=== PATIENT | female | born 1955 ===

== ENCOUNTER 2016-12-20 09:37 | Emergency (ER) | payer BC ==
[2016-12-20] MEDS ORDERED: DiphenhydrAMINE 50 mg/ml Inj IM STA (10:22)
[2016-12-20] MEDS ORDERED: DiphenhydrAMINE 50 mg/ml Inj ONE (10:31)
--- NOTE | 2016-12-20 10:39 | C.PDOC ---
History Of Present Illness 61 y/o female with several years Hx of intermittent rash, presents to ED with complaints of rash in abdomen and both upper arms developing x1 week ago. Patient reports pain and redness when exposed to head or upset. Patient states consulting [facility] a year ago but is unclear of the diagnosis. No medications have been taken. Patient denies itchiness, fever, chills or any other complaints at this time. Time Seen by Provider: 12/20/16 10:09 Chief Complaint (Nursing): Abnormal Skin Integrity History/Exam Limitations: no limitations Onset/Duration Of Symptoms: Days Location Of Injury: Right: Arm, Left: Arm, Anterior: Abdomen Quality Of Symptoms: Painful Past Medical History Vital Signs: Last Vital Signs Temp 98.4 F 12/20/16 11:56 Pulse 82 12/20/16 11:56 Resp 18 12/20/16 11:56 BP 188/81 H 12/20/16 11:56 Pulse Ox 94 L 12/20/16 12:13 - Medical History PMH: Asthma, Diverticulitis, HTN Surgical History: Cholecystectomy Family History: States: No Known Family Hx - Social History Hx Alcohol Use: No Hx Substance Use: No Review Of Systems Constitutional: Negative for: Fever, Chills Skin: Positive for: Rash Neurological: Negative for: Weakness, Headache, Dizziness Physical Exam - Physical Exam Appears: Non-toxic, No Acute Distress Skin: Normal Color, Warm Head: Atraumatic, Normacephalic Eye(s): bilateral: Normal Inspection Cardiovascular: Rhythm Regular Respiratory: No Rales, No Rhonchi, No Wheezing Gastrointestinal/Abdominal: Soft, No Tenderness, No Guarding, No Rebound Extremity: Other (Large area of Uticaria on both arms) Neurological/Psych: Oriented x3, Normal Speech, Normal Cognition, Normal Motor, Normal Sensation ED Course And Treatment O2 Sat by Pulse Oximetry: 94 (Room air ) Pulse Ox Interpretation: Normal Disposition - Disposition Disposition: HOME/ ROUTINE Disposition Time: 11:30 Condition: GOOD Prescriptions: Famotidine [Pepcid] 1 tab PO BID #10 tab Loratadine [Wal-Itin] 10 mg PO DAILY #15 tab.rapdis Loratadine [Claritin] 1 tab PO DAILY #20 tab Prednisone 1 tab PO DAILY #4 tablet Instructions: Urticaria (ED) - Clinical Impression Clinical Impression: Urticaria - PA / CLINIC SUPERVISOR / Resident Statement / has reviewed & agrees with the documentation as recorded. MD/DO has examined the patient and agrees with the treatment plan. - Scribe Statement The provider has reviewed the documentation as recorded by the Scribe Provider Attestation: Joe Kim All medical record entries made by the Scribe were at my direction and personally dictated by me. I have reviewed the chart and agree that the record accurately reflects my personal performance of the history, physical exam, medical decision making, and the department course for this patient. I have also personally directed, reviewed, and agree with the discharge instructions and disposition.
[2016-12-20 11:56] VITALS: BP 188/81; PULSE 82; RESP 18; TEMP 98.4
[2016-12-20 12:05] VITALS: O2SAT 94
== END 2016-12-20 11:55 | disposition home or self-care (01) ==
LOC: C.ER 09:37
DX: L50.9 Urticaria, unspecified (principal)
CPT/HCPCS: 96372; 99284; J1200

== ENCOUNTER 2017-09-04 10:36 | Emergency (ER) | payer BC ==
[2017-09-04 10:44] VITALS: BP 175/99; PULSE 87; RESP 16; TEMP 98.5; O2SAT 96
[2017-09-04] MEDS ORDERED: guaiFENesin 100 mg/5 ml Syrup UD PO STA (11:42)
--- NOTE | 2017-09-04 11:43 | C.PDOC ---
History Of Present Illness 22 y/o female presents to the ER complaining of cough, nasal congestion, and body aches which have been present for 1 day. Patient reports she did not take any medications. Patient states that she has many sick contacts at home with the flu. Patient denies having fever, chills,nausea,vomiting, and diarrhea. Time Seen by Provider: 09/04/17 11:38 Chief Complaint (Nursing): Flu-like Symptoms History Per: Patient History/Exam Limitations: no limitations Onset/Duration Of Symptoms: Days Current Symptoms Are (Timing): Still Present Associated Symptoms: Cough, Nasal Congestion. denies: Nausea, Vomiting, Diarrhea Severity: Moderate Past Medical History Reviewed: Historical Data, Nursing Documentation, Vital Signs Vital Signs: Last Vital Signs Temp 98.5 F 09/04/17 10:41 Pulse 87 09/04/17 10:41 Resp 16 09/04/17 10:41 BP 175/99 H 09/04/17 10:41 Pulse Ox 96 09/04/17 11:43 - Medical History PMH: Asthma, Diverticulitis, HTN Surgical History: Cholecystectomy Family History: States: No Known Family Hx - Social History Hx Alcohol Use: No Hx Substance Use: No - Immunization History Hx Tetanus Toxoid Vaccination: No Hx Influenza Vaccination: No Hx Pneumococcal Vaccination: No Review Of Systems Except As Marked, All Systems Reviewed And Found Negative. Constitutional: Positive for: Malaise. Negative for: Fever, Chills ENT: Positive for: Nose Congestion Respiratory: Positive for: Cough Gastrointestinal: Negative for: Nausea, Vomiting, Diarrhea Physical Exam - Physical Exam Appears: Non-toxic, No Acute Distress, Other (obese, female) Skin: Normal Color, Warm Head: Atraumatic, Normacephalic Eye(s): bilateral: Normal Inspection Ear(s): Bilateral: Normal Nose: Normal Oral Mucosa: Moist Throat: Normal, No Erythema, No Exudate Neck: Supple Chest: Symmetrical Cardiovascular: Rhythm Regular Respiratory: Normal Breath Sounds, No Accessory Muscle Use, No Rales, No Rhonchi , No Wheezing Extremity: Normal ROM Neurological/Psych: Oriented x3, Normal Speech, Normal Motor, Normal Sensation ED Course And Treatment O2 Sat by Pulse Oximetry: 96 (RA) Pulse Ox Interpretation: Normal Progress Note: Patient given Tamiflu, Robitussin, and Motrin. Medical Decision Making Medical Decision Making: empiric tx for influenza s/s x 1 day, many sick contacts @ home w same. Disposition Doctor Will See Patient In The: Office Counseled Patient/Family Regarding: Studies Performed, Diagnosis - Disposition Referrals: Mary Navarrete MD [Staff Provider] - Disposition: HOME/ ROUTINE Disposition Time: 11:43 Condition: GOOD Additional Instructions: kris Tamiflu 75 mg dos veces al jose para cumplir 5 wing Dayquil/Nyquil para chelsi sintomas kris muchos liquidos Sigue con Dr. Navarrete saul necessario. Prescriptions: Oseltamivir [Tamiflu] 75 mg PO BID #9 cap Instructions: Influenza (ED) Forms: [employer] (Telugu), Work Excuse Print Language: FRISIAN - Clinical Impression Clinical Impression: Influenza-like illness - Scribe Statement The provider has reviewed the documentation as recorded by the Scribe Jordana Samayoa Provider Attestation: All medical record entries made by the Scribe were at my direction and personally dictated by me. I have reviewed the chart and agree that the record accurately reflects my personal performance of the history, physical exam, medical decision making, and the department course for this patient. I have also personally directed, reviewed, and agree with the discharge instructions and disposition.
[2017-09-04] MEDS ORDERED: guaiFENesin DM 100 mg-10 mg/5 ml UD ONE (11:50)
== END 2017-09-04 11:55 | disposition home or self-care (01) ==
LOC: C.ER 10:36
DX: J11.1 Influenza due to unidentified influenza virus with other respiratory manifestations (principal)

== ENCOUNTER 2018-02-11 00:29 | Inpatient (IN) | payer BC ==
[2018-02-11] MEDS ORDERED: Aspirin 325 mg EC Tablets PO STA (00:53)
--- NOTE | 2018-02-11 00:53 | C.PDOC ---
History Of Present Illness Patient presents to the ER with a complaint of mid sternal chest pain and SOB after she got out of the shower. Patient is currently speaking in 4-5 word sentences. Denies fever, chills, nausea, or vomiting. Time Seen by Provider: 02/11/18 00:52 Chief Complaint (Nursing): Chest Pain History Per: Patient History/Exam Limitations: no limitations Onset/Duration Of Symptoms: Hrs Current Symptoms Are (Timing): Still Present Severity: Moderate Pain Scale Rating Of: 4 Associated Symptoms: Dyspnea. denies: Nausea, Diaphoresis, Syncope, Other ( Fever, chills, nausea, or vomiting.) Modifying Factors: None Exacerbating Factors: None Alleviating Factors: None Recent travel outside of the [place]: No Additional History Per: Family Past Medical History Reviewed: Historical Data, Nursing Documentation, Vital Signs Vital Signs: Last Vital Signs Temp 98.3 F 02/11/18 00:38 Pulse 90 02/11/18 03:11 Resp 22 02/11/18 03:11 BP 156/85 H 02/11/18 03:11 Pulse Ox 98 02/11/18 03:11 - Medical History PMH: Asthma, Diverticulitis, HTN Surgical History: Cholecystectomy Family History: States: No Known Family Hx - Social History Hx Alcohol Use: No Hx Substance Use: No - Immunization History Hx Tetanus Toxoid Vaccination: No Hx Influenza Vaccination: Yes Hx Pneumococcal Vaccination: Yes Review Of Systems Constitutional: Negative for: Fever, Chills Eyes: Negative for: Vision Change ENT: Negative for: Throat Pain Cardiovascular: Positive for: Chest Pain Respiratory: Positive for: Shortness of Breath Gastrointestinal: Negative for: Nausea, Vomiting Genitourinary: Negative for: Dysuria Musculoskeletal: Negative for: Back Pain Skin: Negative for: Rash Neurological: Negative for: Weakness, Numbness Psych: Negative for: Anxiety Physical Exam - Physical Exam Appears: Non-toxic, Other (moderate distress) Skin: Warm, Dry Head: Normacephalic Eye(s): bilateral: Normal Inspection Oral Mucosa: Moist Neck: Supple Chest: Symmetrical, No Tenderness Cardiovascular: Rhythm Regular Respiratory: Decreased Breath Sounds, No Rales, No Rhonchi, Wheezing Gastrointestinal/Abdominal: Soft, No Tenderness, No Distention, No Guarding Back: Normal Inspection Extremity: Normal ROM Extremity: Bilateral: Atraumatic Pulses: Left Dorsalis Pedis: Normal, Right Dorsalis Pedis: Normal Neurological/Psych: Oriented x3 Gait: Steady ED Course And Treatment - Laboratory Results Result Diagrams: 02/11/18 01:08 02/11/18 01:08 ECG: Interpreted By Me, Viewed By Me ECG Rhythm: Sinus Rhythm (100), Nonspecific Changes (lvh with repol abn) O2 Sat by Pulse Oximetry: 97 (Room air) Pulse Ox Interpretation: Normal - Radiology CXR: Interpreted by Me, Viewed By Me CXR Interpretation: No: Infiltrates, Fracture, Pnemothorax Progress Note: EKG, blood work, and CXR ordered. Aspirin and lovenox administered. Disposition Discussed With : Mary Navarrete Comment: accepted the pt on his service and took over the care at 3:26 AM Doctor Will See Patient In The: Hospital Counseled Patient/Family Regarding: Studies Performed, Diagnosis - Disposition Referrals: Mary Navarrete MD [Primary Care Provider] - Disposition: HOSPITALIZED Disposition Time: 00:52 Condition: GUARDED Forms: [employer] (Moldovan) - POA Present On Arrival: Poor Glycemic Control - Clinical Impression Clinical Impression: Chest pain, Asthma exacerbation, Dyspnea - Scribe Statement The provider has reviewed the documentation as recorded by the Scribe Tray Alejo All medical record entries made by the Scribe were at my direction and personally dictated by me. I have reviewed the chart and agree that the record accurately reflects my personal performance of the history, physical exam, medical decision making, and the department course for this patient. I have also personally directed, reviewed, and agree with the discharge instructions and disposition. Decision To Admit - Pt Status Changed To: Hospital Disposition Of: Inpatient - Admit Certification Admit to Inpatient:: After my assessment, the patient will require hospitalization for at least two midnights. This is because of the severity of symptoms shown, intensity of services needed, and/or the medical risk in this patient being treated as an outpatient. - InPatient: Physician Admission Certification: I certify that this patient requires 2 or more midnights of care for the following reason:: After my assessment, the patient will require hospitalization for at least two midnights. This is because of the severity of symptoms shown, intensity of services needed, and/or the medical risk in this patient being treated as an outpatient. - . Bed Request Type: Telemetry Admitting Physician: Mary Navarrete Patient Diagnosis: Chest pain, Asthma exacerbation, Dyspnea
[2018-02-11] MEDS ORDERED: Enoxaparin 40 mg Syringe SC STA (01:19)
[2018-02-11 01:22] LABS: BASO % 0.6 % (0.0-2.0); EOS # 0.1 K/uL (0.0-0.7); EOS % 1.4 % (0.0-4.0); HEMOGLOBIN 12.6 g/dL (11.0-16.0); LYMPH # 1.7 K/uL (1.0-4.3); LYMPH % 22.1 % (20.0-40.0); MEAN CORPUSCULAR HEMOGLOBIN 26.1 pg (27.0-31.0); MEAN CORPUSCULAR HGB CONC 33.4 g/dL (33.0-37.0); MEAN PLATELET VOLUME 8.1 fL (7.2-11.7); MONO # 0.4 K/uL (0.0-0.8); MONO % 5.8 % (0.0-10.0); NEUT # 5.3 K/uL (1.8-7.0); NEUT % 70.1 % (50.0-75.0); NRBC % 0.1 % (0.0-2.0); RBC 4.84 Mil/uL (3.80-5.20); RED CELL DISTRIBUTION WIDTH 14.1 % (11.5-14.5); WHITE BLOOD COUNT 7.6 K/uL (4.8-10.8)
[2018-02-11 01:29] LABS: PROTHROMBIN TIME 10.6 SECONDS (9.7-12.2)
[2018-02-11] MEDS ORDERED: Enoxaparin 80 mg Syringe ONE (01:37)
[2018-02-11 02:13] LABS: BLOOD UREA NITROGEN 14 mg/dL (7-17); GFR AFRICAN-AMERICAN > 60; GFR NON-AFRICAN AMERICAN > 60
[2018-02-11 02:14] LABS: ALB/GLOB RATIO 1.5 (1.0-2.1); ALBUMIN 4.4 g/dL (3.5-5.0); ALT/SGPT 22 U/L (9-52); AST/SGOT 22 U/L (14-36); B-TYPE NATRIURETIC PEPTIDE 387 pg/mL (0-900); CALCIUM 9.2 mg/dl (8.6-10.4)
[2018-02-11 02:15] LABS: LIPASE 33 U/L (23-300)
[2018-02-11] MEDS ORDERED: Potassium Chloride 10 mEq ER Tab PO STA (02:32)
[2018-02-11] MEDS: Albuterol-Ipratrop 3 mg / 0.5 (3 ml) UD IH SCH ×3 (02:45→03:10)
[2018-02-11] MEDS ORDERED: Potassium Chloride 20 mEq ER Tab PO ONE ×2 (02:47→10:00)
[2018-02-11] MEDS ORDERED: Albuterol-Ipratrop 3 mg / 0.5 (3 ml) UD ONE ×3 (02:53)
[2018-02-11] MEDS ORDERED: (Novolin R) Insulin Human Regular 100 units/ml vial SC SCH (07:30)
--- NOTE | 2018-02-11 07:49 | CP.PCM.PN ---
Subjective - Date & Time of Evaluation Date of Evaluation: 02/11/18 Time of Evaluation: 07:48 - Subjective Subjective: Internal Medicine Progress Note - Dr Ricardo Navarrete Service Patient seen and examined at bedside. Per nursing patient had elevated BP this morning, SBP 180s, STAT dose of hydralazine was given. Later in the morning rapid response was called for midsternal chest pain and dyspnea, SBPs 200s, EKG revealed SVT. STAT dose of Labetalol 10mg IVP x 1 given. Currently patient states that she feels better. Denies headaches, dizziness, abdominal pain, urinary symptoms. Objective - Vital Signs/Intake and Output Vital Signs (last 24 hours): Temp Pulse Resp BP Pulse Ox 98.4 F 98 H 22 165/90 H 97 02/11/18 06:22 02/11/18 06:22 02/11/18 06:22 02/11/18 06:22 02/11/18 06:22 - Medications Medications: Current Medications Aspirin (Ecotrin) 81 mg PO DAILY [facility] Enoxaparin Sodium (Lovenox) 40 mg SC DAILY [facility] Insulin Human Regular (Novolin R) 0 unit SC ACHS [facility] PRN Reason: Protocol Pantoprazole Sodium (Protonix Ec Tab) 40 mg PO DAILY [facility] - Labs Labs: 02/11/18 01:08 02/11/18 01:08 PT 10.6 SECONDS (9.7-12.2) 02/11/18 01:08 INR 1.0 02/11/18 01:08 APTT 38 SECONDS (21-34) H 02/11/18 01:08 - Constitutional Appears: Non-toxic, In Acute Distress - Head Exam Head Exam: ATRAUMATIC, NORMAL INSPECTION, NORMOCEPHALIC - Eye Exam Eye Exam: EOMI, Normal appearance Pupil Exam: NORMAL ACCOMODATION - ENT Exam ENT Exam: Mucous Membranes Moist - Neck Exam Neck Exam: Full ROM - Respiratory Exam Respiratory Exam: Decreased Breath Sounds, Wheezes, Respiratory Distress. absent: Rales - Cardiovascular Exam Cardiovascular Exam: Tachycardia, +S1, +S2 - GI/Abdominal Exam GI & Abdominal Exam: Soft, Normal Bowel Sounds. absent: Rigid, Tenderness - Rectal Exam Rectal Exam: Deferred - Extremities Exam Extremities Exam: Full ROM, Normal Inspection - Back Exam Back Exam: NORMAL INSPECTION - Neurological Exam Neurological Exam: Alert, Awake, Oriented x3 - Psychiatric Exam Psychiatric exam: Normal Affect, Normal Mood - Skin Skin Exam: Dry, Normal Color, Warm Assessment and Plan - Assessment and Plan (Free Text) Assessment: A/P: Patient is a 62 year old female with past medical history of Hypertension, HLD, DM Type 2, Cerebral aneurysm s/p clippings who presented to the ED with chest pain and dyspnea. Chest Pain R/O ACS -Stable, afebrile -Initial troponin negative, will trend x 2 -Received ASA 325mg PO x 1 dose in the ED -Continue ASA 325mg PO daily, Brilinta 90mg PO BID (dosages confirmed with [facility] -Follow up lipid panel, TSH level -Cardiology on consult, help appreciated -Physical therapy evaluation ordered History of Diabetes Mellitus -HgA1C 6.5 -High dose ISS, accuchecks ACHS -Will hold Metformin dose at this time -Urine microalbumin, urine creatinine ordered Dyspnea -Atrovent 0.5mg Q6H ZAC x 24 hours -Recieved Solumedrol 125mg IVP in the ED -Solumedrol 60mg Q8H IVP -Patient has a history of asthma, uses albuterol inhaler 4x week and 2x a night for shortness of breath -Patient is a former smoker, quit 6 years ago; smoked 1ppd -Wells criteria 1.5 for tachycardia, therefore no need for PE workup at this time, D Dimer on admission was negative -Pulmonology consulted, help appreciated Hypertension -S/P Labetolol 10mg IVP during [employer] POLIC[employer] MANAGER -Hydralazine 10mg Q6H IVP prn SBP > 160 -Started Lisinopril 5mg PO daily -Will need to verify home BP medication with the family this afternoon so it can be restarted History of Hyperlipidemia -F/U fasting lipid panel tomorrow -Restarted Crestor 10mg PO HS (confirmed with [facility]) Hypokalemia -Potassium 3.3 this morning -Given Kcl 40meq x 1 -Will continue to monitor GI/DVT ppx: Protonix 40mg IVP daily Lovenox 40mg SC daily Plan discussed with Dr Ricardo Liu DO PGY-2
[2018-02-11 08:51] LABS: BASO % 0.2 % (0.0-2.0); EOS % 0.1 % (0.0-4.0); HEMOGLOBIN 13.1 g/dL (11.0-16.0); LYMPH # 0.6 K/uL (1.0-4.3); LYMPH % 9.6 % (20.0-40.0); MEAN CELL VOLUME 78.9 fL (81.0-99.0); MEAN CORPUSCULAR HEMOGLOBIN 26.5 pg (27.0-31.0); MEAN CORPUSCULAR HGB CONC 33.6 g/dL (33.0-37.0); MEAN PLATELET VOLUME 8.4 fL (7.2-11.7); MONO # 0.1 K/uL (0.0-0.8); MONO % 1.1 % (0.0-10.0); PLATELET COUNT 265 K/uL (130-400); RBC 4.95 Mil/uL (3.80-5.20); RED CELL DISTRIBUTION WIDTH 14.1 % (11.5-14.5); WHITE BLOOD COUNT 6.8 K/uL (4.8-10.8)
[2018-02-11 09:00] LABS: ALB/GLOB RATIO 1.4 (1.0-2.1); ALBUMIN 4.4 g/dL (3.5-5.0); ALT/SGPT 23 U/L (9-52); AST/SGOT 25 U/L (14-36); BLOOD UREA NITROGEN 11 mg/dL (7-17); CALCIUM 8.8 mg/dl (8.6-10.4); GFR AFRICAN-AMERICAN > 60; GFR NON-AFRICAN AMERICAN > 60
[2018-02-11] MEDS ORDERED: Labetalol 5 mg/ml Inj 20ML IV ONE (09:31)
[2018-02-11] MEDS ORDERED: Labetalol 25mg/5ml Syringe ONE (09:34)
[2018-02-11] MEDS ORDERED: Ipratropium 0.02% Inhal Soln (0.5 mg/2.5 ml) UD IH ONE (09:44)
[2018-02-11] MEDS ORDERED: Ipratropium 17 mcg/puff-200 puff/12.5 gm HFA Inh IH SCH (09:45)
[2018-02-11 09:46] LABS: LYMPHOCYTE 6 % (20-40); MONOCYTE 1 % (0-10); NEUTROPHIL 93 % (50-75); PLATELET ESTIMATE NORMAL (NORMAL); TOTAL CELLS COUNTED 100
--- NOTE | 2018-02-11 09:50 | PCM.RRT ---
AVIATION TECHNICIAN Nurses Assessment - Situation Date: 02/11/18 Time AVIATION TECHNICIAN was called: 09:20 AVIATION TECHNICIAN Responder Arrival Time:: 09:21 AVIATION TECHNICIAN Location:: Med/Surg Room Number: 653B AVIATION TECHNICIAN Reason for Call: Chest Pain, Hypertension, Respiratory Distress AVIATION TECHNICIAN Called By: RN - IV IV Inserted during AVIATION TECHNICIAN?: No - Respiratory AVIATION TECHNICIAN Delivery Method: Nasal Cannula @L/min Oxygen Flow Rate: 4 Received Nebulizer Treatments: Yes (Atrovent) Was the Patient Ventilated with Bag/Mask 100% O2?: No Secretions Suctioned?: No Was the Patient Intubated?: No Was the Patient Placed on a Ventilator?: No - Medication Medications Administered During AVIATION TECHNICIAN: Labetalol 10mg IVPx1, Atrovent nebulizer - Diagnostic Test Ordered EKG: Yes - Stat Labs Ordered AVIATION TECHNICIAN Stat Labs Ordered: TROPONIN CPR started during AVIATION TECHNICIAN?: No - Vital Signs Vital Signs: VS BP 203/133 HR 115 Temp 97.3 O2 sat 97% 3L NC RR 30 I.Reason for AVIATION TECHNICIAN - A) Acute Change in Patient: (Select all that apply): Chest Pain Subjective: AVIATION TECHNICIAN Note Rapid response was called at 09 for acute chest pain with shortness of breath. Staff arrived to assess patient at 0921. Initial VS: BP 203/133 HR 115 Temp 97.3 RR 30 Pulse ox 97% 3L NC Accucheck 192 Stat EKG was done which revealed SVT at 114 with LVH Prior EKG on admission was reviewed by Dr. Abrahan Navarrete. CXR from admission reviewed which revealed cardiomegaly. On exam: patient was found to be wheezing in lower lobes. Tachycardic with HR in 115. Morning Labs were reviewed. Labetalol 10mg IVPx1 was given. Stat orders for ECHO, troponin, cardiology/ pulmonary consults placed. Solumedrol 60mg Q8 ordered. High dose ISS ordered. Ipratropium nebulizer given by Respiratory therapist. 0938 Repeat BP 166/82 HR 99 0942 Repeat BP 168/82 HR 89 0943 On reeevaluation, patient states she feels better and able to speak in full sentences. Case discussed with Dr. Faye Liu who will discuss with Dr. Duncan Navarrete. - Neurological Status (Select all that apply): Alert, Follows Commands - Respiratory Oxygen Delivery Method: Nasal Cannula @L/min (4L) - Constitutional Appears: In Acute Distress - Head Head Exam: ATRAUMATIC, NORMAL INSPECTION, NORMOCEPHALIC - Eyes Eye Exam: EOMI, Normal appearance - Respiratory Exam Respiratory Exam: Wheezes, Respiratory Distress. absent: Rales, Rhonchi Additional comments: wheezing in lower lobes bilaterally - Cardiovascular Exam Cardiovascular Exam: Tachycardia, +S1, +S2 - GI/Abdominal Exam GI & Abdominal Exam: Soft. absent: Tenderness - Neurological Exam Neurological Exam: Alert, Awake, Oriented x3 - Extremities Exam Extremities Exam: Full ROM, Normal Inspection. absent: Calf Tenderness, Tenderness Plan - Assessment of Findings&Treatment Plan A/P Patient is 62 year old female with PMH of hypertension, type 2 diabetes, asthma , brain aneurysms with clips who presented to the ED with chest pain and shortness of breath. Rapid response was called at 0920 this morning for chest pain, shortness of breath ,with elevated BP. - Stable, afebrile - Stat troponin, ECHO ordered - Television Schedule Coordinator consult placed - Pulmonology consult placed - Solumedrol 60mg Q8 IVP, high dose ISS - Ipratropium nebulizer Q6 scheduled x24 hours, then PRN - Call placed to Dr. Duncan Navarrete - awaiting call back. Case discussed with Dr. Faye Liu, Dr. Abrahan Navarrete, Mignon Gleason, ANYYI
[2018-02-11 10:00] LABS: CK-MB 4.33 ng/mL (0.0-3.38); TROPONIN I 0.07 ng/mL (0.00-0.120)
[2018-02-11] MEDS ORDERED: Pantoprazole 40 mg EC Tab PO SCH (10:00)
--- NOTE | 2018-02-11 10:06 | RAD ---
Date of service: 02/11/2018 PROCEDURE: CHEST RADIOGRAPH, 1 VIEW HISTORY: chest pain COMPARISON: None available. FINDINGS: LUNGS: Clear. PLEURA: No pneumothorax or pleural fluid seen. CARDIOVASCULAR: No radiographic findings to suggest acute or significant cardiovascular disease. OSSEOUS STRUCTURES: No significant abnormalities. VISUALIZED UPPER ABDOMEN: Normal. OTHER FINDINGS: None. IMPRESSION: No active disease. Concordant results with the preliminary interpretation rendered by the emergency department physician procedure.
[2018-02-11] MEDS: MethylPREDNISolone 40 mg Vial IVP SCH ×2 (10:37→17:38)
[2018-02-11 10:48] LABS: CK-MB 3.72 ng/mL (0.0-3.38); TROPONIN I 0.067 ng/mL (0.00-0.120)
--- NOTE | 2018-02-11 11:18 | CP.PCM.CON ---
History of Present Illness - History of Present Illness History of Present Illness: CHART REVIEWED, PT SEEN AND EXAMINED. 62 YO HISP FEMALE WITH A HX COPD, CHF, HTN, DM, OBESITY, CEREBRAL ANEURSYM X 2, MIKAYLA, ADM 02/11/2018 WITH INCREASED MOD SOB WITH MIN EXERTION X FEW DAYS., +ANT CP RECURRENT +COUGH NO SPUTUM., NO FEVER. NO N/V. +HOME NEB ., NO HOME O2. USING CPAP QHS. Review of Systems - Review of Systems All systems: reviewed and no additional remarkable complaints except - Constitutional Constitutional: absent: Fever - EENT Eyes: absent: Change in Vision Ears: absent: Ear Pain Nose/Mouth/Throat: absent: Nasal Congestion - Cardiovascular Cardiovascular: Chest Pain, Chest Pain at Rest, Chest Pain with Activity - Respiratory Respiratory: Cough, Dyspnea, Dyspnea on Exertion. absent: Change in Mucous Color - Gastrointestinal Gastrointestinal: absent: Nausea, Vomiting - Genitourinary Genitourinary: absent: Dysuria - Musculoskeletal Musculoskeletal: Back Pain - Integumentary Integumentary: absent: Rash - Neurological Neurological: absent: Focal Weakness - Endocrine Endocrine: absent: Change in Body Appearance - Hematologic/Lymphatic Hematologic: absent: Easy Bruising Past Patient History - Infectious Disease Hx of Infectious Diseases: None - Past Medical History & Family History Past Medical History?: Yes Past Family History: Reviewed and not pertinent - Past Social History Smoking Status: Former Smoker Chewing Tobacco Use: No Cigar Use: No Alcohol: None Drugs: Denies - CARDIAC Hx Cardiac Disorders: Yes Hx Hypertension: Yes - PULMONARY Hx Respiratory Disorders: Yes Hx Asthma: Yes Hx Chronic Obstructive Pulmonary Disease (COPD): Yes - NEUROLOGICAL Hx Neurological Disorder: No Other/Comment: Aneurysm in 2002,Clipped @ [facility] R side of head,L side Clipped last year. @ [facility] - HEENT Hx HEENT Problems: No - RENAL Hx Chronic Kidney Disease: No - ENDOCRINE/METABOLIC Hx Endocrine Disorders: Yes Hx Diabetes Mellitus Type 1: (no meds) Hx Diabetes Mellitus Type 2: Yes - HEMATOLOGICAL/ONCOLOGICAL Hx Blood Disorders: Yes Hx Blood Transfusions: Yes - INTEGUMENTARY Hx Dermatological Problems: No - MUSCULOSKELETAL/RHEUMATOLOGICAL Hx Falls: No - GASTROINTESTINAL Hx Gastrointestinal Disorders: Yes Hx Diverticulitis: Yes - GENITOURINARY/GYNECOLOGICAL Hx Genitourinary Disorders: No - PSYCHIATRIC Hx Psychophysiologic Disorder: No Hx Substance Use: No - SURGICAL HISTORY Hx Surgeries: Yes Hx Cholecystectomy: Yes Hx Hysterectomy: Yes Hx Vascular Surgery: Yes (CEREBRAL ANEURYSM RIGHT AND LEFT. ) Other/Comment: Hx of R and L Brain Aneurysms - ANESTHESIA Hx Anesthesia: Yes Hx Anesthesia Reactions: No Hx Malignant Hyperthermia: No Has any member of the family had a problem w/ anesthesia?: No Meds Allergies/Adverse Reactions: Allergies Allergy/AdvReac Type Severity Reaction Status Date / Time No Known Allergies Allergy Verified 02/11/18 00:34 - Medications Medications: Current Medications Aspirin (Ecotrin) 325 mg PO DAILY [facility] Enoxaparin Sodium (Lovenox) 40 mg SC DAILY [facility] Hydralazine HCl (Apresoline) 10 mg IVP Q6H PRN PRN Reason: Systolic Blood Pressure Insulin Human Regular (Novolin R) 0 unit SC ACHS [facility] PRN Reason: Protocol Ipratropium [place] (Atrovent) 0.5 mg IH RQ6 [facility] Lisinopril (Zestril) 5 mg PO DAILY [facility] Methylprednisolone (Solu-Medrol) 60 mg IVP Q8H [facility] Last Admin: 02/11/18 10:37 Dose: 60 mg Pantoprazole Sodium (Protonix Inj) 40 mg IVP DAILY [facility] Last Admin: 02/11/18 10:38 Dose: 40 mg Ticagrelor (Brilinta) 90 mg PO BID [facility] Physical Exam - Constitutional Appears: Chronically Ill - Head Exam Head Exam: ATRAUMATIC, NORMOCEPHALIC - Eye Exam Eye Exam: EOMI, Normal appearance - ENT Exam ENT Exam: Mucous Membranes Moist - Neck Exam Neck exam: Negative for: Tenderness - Respiratory Exam Respiratory Exam: Decreased Breath Sounds, Prolonged Expiratory Phase. absent: Accessory Muscle Use, Wheezes - Cardiovascular Exam Cardiovascular Exam: RRR, +S1, +S2 - GI/Abdominal Exam GI & Abdominal Exam: Soft. absent: Tenderness - Rectal Exam Rectal Exam: Deferred - Extremities Exam Extremities exam: Negative for: calf tenderness, pedal edema - Back Exam Back exam: absent: CVA tenderness (L), CVA tenderness (R) - Neurological Exam Neurological exam: Alert, CN II-XII Intact, Oriented x3 - Psychiatric Exam Psychiatric exam: Normal Mood Results - Vital Signs Recent Vital Signs: Last Vital Signs Temp 98.0 F 02/11/18 07:00 Pulse 96 H 07/11/18 07:51 Resp 20 02/11/18 07:37 BP 203/113 H 02/11/18 10:37 Pulse Ox 96 02/11/18 07:37 - Labs Result Diagrams: 02/12/18 07:28 02/12/18 07:28 Labs: Laboratory Results - last 24 hr 02/11/18 02/11/18 02/11/18 00:39 01:08 01:08 WBC 7.6 RBC 4.84 Hgb 12.6 Hct 37.7 MCV 78.0 L MCH 26.1 L MCHC 33.4 RDW 14.1 Plt Count 244 MPV 8.1 Neut % (Auto) 70.1 Lymph % (Auto) 22.1 [place] % (Auto) 5.8 Eos % (Auto) 1.4 Baso % (Auto) 0.6 Neut # (Auto) 5.3 Lymph # (Auto) 1.7 [place] # (Auto) 0.4 Eos # (Auto) 0.1 Baso # (Auto) 0.0 Neutrophils % (Manual) Lymphocytes % (Manual) Monocytes % (Manual) Platelet Estimate PT 10.6 INR 1.0 APTT 38 H D-Dimer, Quantitative Sodium Potassium Chloride Carbon Dioxide Anion Gap BUN Creatinine Est GFR ( Amer) Est GFR (Non-Af Amer) POC Glucose (mg/dL) 153 H Random Glucose Hemoglobin A1c Calcium Phosphorus Magnesium Total Bilirubin AST ALT Alkaline Phosphatase Total Creatine Kinase CK-MB (Mass) Troponin I NT-Pro-B Natriuret Pep Total Protein Albumin Globulin Albumin/Globulin Ratio Lipase 02/11/18 02/11/18 02/11/18 01:08 02:01 06:50 WBC RBC Hgb Hct MCV MCH MCHC RDW Plt Count MPV Neut % (Auto) Lymph % (Auto) [place] % (Auto) Eos % (Auto) Baso % (Auto) Neut # (Auto) Lymph # (Auto) [place] # (Auto) Eos # (Auto) Baso # (Auto) Neutrophils % (Manual) Lymphocytes % (Manual) Monocytes % (Manual) Platelet Estimate PT INR APTT D-Dimer, Quantitative < 200 Sodium 142 Potassium 3.1 L Chloride 104 Carbon Dioxide 28 Anion Gap 13 BUN 14 Creatinine 0.7 Est GFR ( Amer) > 60 Est GFR (Non-Af Amer) > 60 POC Glucose (mg/dL) 165 H Random Glucose 136 H Hemoglobin A1c Calcium 9.2 Phosphorus Magnesium Total Bilirubin 0.6 AST 22 ALT 22 Alkaline Phosphatase 95 Total Creatine Kinase CK-MB (Mass) Troponin I 0.0680 NT-Pro-B Natriuret Pep 387 Total Protein 7.3 Albumin 4.4 Globulin 3.0 Albumin/Globulin Ratio 1.5 Lipase 33 02/11/18 02/11/18 02/11/18 08:37 08:37 08:37 WBC 6.8 RBC 4.95 Hgb 13.1 Hct 39.1 MCV 78.9 L MCH 26.5 L MCHC 33.6 RDW 14.1 Plt Count 265 MPV 8.4 Neut % (Auto) 89.0 H Lymph % (Auto) 9.6 L [place] % (Auto) 1.1 Eos % (Auto) 0.1 Baso % (Auto) 0.2 Neut # (Auto) 6.0 Lymph # (Auto) 0.6 L [place] # (Auto) 0.1 Eos # (Auto) 0.0 Baso # (Auto) 0.0 Neutrophils % (Manual) 93 H Lymphocytes % (Manual) 6 L Monocytes % (Manual) 1 Platelet Estimate Normal PT INR APTT D-Dimer, Quantitative Sodium 145 Potassium 3.3 L Chloride 104 Carbon Dioxide 29 Anion Gap 15 BUN 11 Creatinine 0.7 Est GFR ( Amer) > 60 Est GFR (Non-Af Amer) > 60 POC Glucose (mg/dL) Random Glucose 159 H Hemoglobin A1c Calcium 8.8 Phosphorus 2.8 Magnesium 2.0 Total Bilirubin 0.5 AST 25 ALT 23 Alkaline Phosphatase 93 Total Creatine Kinase 92 CK-MB (Mass) 4.33 H Troponin I 0.0700 NT-Pro-B Natriuret Pep Total Protein 7.5 Albumin 4.4 Globulin 3.1 Albumin/Globulin Ratio 1.4 Lipase 02/11/18 02/11/18 02/11/18 08:37 09:22 09:33 WBC RBC Hgb Hct MCV MCH MCHC RDW Plt Count MPV Neut % (Auto) Lymph % (Auto) [place] % (Auto) Eos % (Auto) Baso % (Auto) Neut # (Auto) Lymph # (Auto) [place] # (Auto) Eos # (Auto) Baso # (Auto) Neutrophils % (Manual) Lymphocytes % (Manual) Monocytes % (Manual) Platelet Estimate PT INR APTT D-Dimer, Quantitative Sodium Potassium Chloride Carbon Dioxide Anion Gap BUN Creatinine Est GFR ( Amer) Est GFR (Non-Af Amer) POC Glucose (mg/dL) 192 H Random Glucose Hemoglobin A1c 6.5 Calcium Phosphorus Magnesium Total Bilirubin AST ALT Alkaline Phosphatase Total Creatine Kinase 99 CK-MB (Mass) 3.72 H Troponin I 0.0670 NT-Pro-B Natriuret Pep Total Protein Albumin Globulin Albumin/Globulin Ratio Lipase Assessment & Plan (1) COPD exacerbation Status: Acute (2) CHF (congestive heart failure) Status: Acute (3) Hypertension Status: Acute (4) Respiratory failure Status: Acute (5) Unstable angina Status: Acute (6) Obesity Status: Acute - Assessment and Plan (Free Text) Assessment: 62 YO FEMALE WITH A HX MULT MED PROBS ADM WITH EXAC COPD, ?UNSTABLE ANGINA WITH RESP FAILURE, CONT O2 3L , MONITOR O2 SAT., IV STEROIDS, NEB BD., CXR REVIEWED. , FOR CARDIO EVAL. CARD ENZ PENDING. ON TELEM MONITORING. GI/DVT PROPHYLAXIS. PROG GUARDED., DISCUSSED WITH STAFF AT LENGTH AND FAMILY AT BEDSIDE.
[2018-02-11] MEDS: (Novolin R) Insulin Human Regular 100 units/ml vial SC SCH ×3 (13:00→21:48)
[2018-02-11] MEDS: Ipratropium 0.02% Inhal Soln (0.5 mg/2.5 ml) UD IH SCH (13:33)
--- NOTE | 2018-02-11 17:43 | CP.PCM.CON ---
History of Present Illness - History of Present Illness History of Present Illness: I was asked to evaluate patient for dyspnea and chest pain. Patient is a 62 year old female with PMH HTN, hypercholesterolemia, CAD who presetns with chest pain. The patient states symptoms occurred at rest. She has dyspnea. Symptoms are present at rest. Review of Systems - Constitutional Constitutional: absent: As Per HPI, Anorexia, Chills, Daytime Sleepiness, Excessive Sweating, Fatigue, Fever, Frequent Falls, Headache, Increased Appetite , Lethargy, Malaise, Night Sweats, Snoring, Sleep Apnea, Weight Gain, Weight Loss, Weakness, Other - EENT Eyes: absent: As Per HPI, Blind Spots, Blurred Vision, Change in Vision, Decreased Night Vision, Diplopia, Discharge, Dry Eye, Exophthalmos, Floaters, Irritation, Itchy Eyes, Loss of Peripheral Vision, Pain, Photophobia, Requires Corrective Lenses, Sees Flashes, Spots in Vision, Tunnel Vision, Other Visual Disturbances, Loss of Vision, Other Ears: absent: As Per HPI, Decreased Hearing, Ear Discharge, Ear Pain, Tinnitus, Abnormal Hearing, Disequilibrium, Dizziness, Other Nose/Mouth/Throat: absent: As Per HPI, Epistaxis, Nasal Congestion, Nasal Discharge, Nasal Obstruction, Nasal Trauma, Nose Pain, Post Nasal Drip, Sinus Pain, Sinus Pressure, Bleeding Gums, Change in Voice, Dental Pain, Dry Mouth, Dysphagia, Halitosis, Hoarsness, Lip Swelling, Mouth Lesions, Mouth Pain, Odynophagia, Sore Throat, Throat Swelling, Tongue Swelling, Facial Pain, Neck Pain, Neck Mass, Other - Cardiovascular Cardiovascular: Dyspnea - Respiratory Respiratory: absent: As Per HPI, Cough, Dyspnea, Hemoptysis, Dyspnea on Exertion , Wheezing, Snoring, Stridor, Pain on Inspiration, Chest Congestion, Excessive Mucous Production, Change in Mucous Color, Pain with Coughing, Other - Gastrointestinal Gastrointestinal: absent: As Per HPI, Abdominal Pain, Belching, Bloating, Change in Bowel Habits, Change in Stool Character, Coffee Ground Emesis, Constipation, Cramping, Diarrhea, Dyspepsia, Dysphagia, Early Satiety, Excessive Flatus, Fecal Incontinence, Heartburn, Hematemesis, Hematochezia, Loose Stools, Melena, Nausea, Odynophagia, Temesmus, Vomiting, Other - Genitourinary Genitourinary: absent: As Per HPI, Change in Urinary Stream, Difficulty Urinating, Dysuria, Flank Pain, Hematuria, Pyuria, Nocturia, Urinary Incontinence, Urinary Frequency, Urinary Hesitance, Urinary Urgency, Voiding Freq/Small Amts, Freq UTI, Hx Renal/Bladder Calculi, Hx /Renal Surgery, Bladder Distension, Other - Musculoskeletal Musculoskeletal: absent: As Per HPI, Abnormal Gait, Arthralgias, Atrophy, Back Pain, Deformity, Joint Swelling, Limited Range of Motion, Loss of Height, Muscle Cramps, Muscle Weakness, Myalgias, Neck Pain, Numbness, Radiating Pain into Limb, Stiffness, Tingling, Other - Integumentary Integumentary: absent: As Per HPI, Acne, Alopecia, Bleeding Lesions, Change in Hair, Change in Nails, Change in Pigmentation, Changing Lesions, Dry Skin, Erythema, Furuncle, Hirsutism, Lesions, New Lesions, Non-Healing Lesions, Photosensitivity, Pruritus, Rash, Skin Pain, Skin Ulcer, Sores, Striae, Swelling , Unusual Bruising, Wounds, Jaundice, Other - Neurological Neurological: absent: As Per HPI, Abnormal Gait, Abnormal Hearing, Abnormal Movements, Abnormal Speech, Behavioral Changes, Burning Sensations, Confusion, Convulsions, Disequilibrium, Dizziness, Numbness, Focal Weakness, Frequent Falls , Headaches, Lack of Coordination, Loss of Vision, Memory Loss, Paresthesias, Radicular Pain, Restless Legs, Sensory Deficit, Syncope, Tingling, Tremor, Vertigo, Weakness, Other Visual Disturbances, Other - Psychiatric Psychiatric: absent: As Per HPI, Abnormal Sleep Pattern, Anhedonia, Anxiety, Auditory Hallucinations, Behavioral Changes, Change in Appetite, Change in Libido, Confusion, Depression, Difficulty Concentrating, Hallucinations, Homicidal Ideation, Hopelessness, Irritability, Memory Loss, Mood Swings, Panic Attacks, Paranoia, Suicidal Ideation, Visual Hallucinations, Tactile Hallucinations, Other - Endocrine Endocrine: absent: As Per HPI, Change in Body Appearance, Change in Libido, Cold Intolorance, Deepening of Voice, Excessive Sweating, Fatigue, Flushing, Heat Intolorance, Increase in Ring/Shoe/Hat Size, Palpitations, Polydipsia, Polyphagia, Polyuria, Other - Hematologic/Lymphatic Hematologic: absent: As Per HPI, Easy Bleeding, Easy Bruising, Lymphadenopathy, Other Past Patient History - Infectious Disease Hx of Infectious Diseases: None - Past Medical History & Family History Past Medical History?: Yes Past Family History: Reviewed and not pertinent - Past Social History Smoking Status: Former Smoker Chewing Tobacco Use: No Cigar Use: No Alcohol: None Drugs: Denies - CARDIAC Hx Cardiac Disorders: Yes Hx Hypertension: Yes - PULMONARY Hx Respiratory Disorders: Yes Hx Asthma: Yes Hx Chronic Obstructive Pulmonary Disease (COPD): Yes - NEUROLOGICAL Hx Neurological Disorder: No Other/Comment: Aneurysm in 2002,Clipped @ [facility] R side of head,L side Clipped last year. @ [facility] - HEENT Hx HEENT Problems: No - RENAL Hx Chronic Kidney Disease: No - ENDOCRINE/METABOLIC Hx Endocrine Disorders: Yes Hx Diabetes Mellitus Type 1: (no meds) Hx Diabetes Mellitus Type 2: Yes - HEMATOLOGICAL/ONCOLOGICAL Hx Blood Disorders: Yes Hx Blood Transfusions: Yes - INTEGUMENTARY Hx Dermatological Problems: No - MUSCULOSKELETAL/RHEUMATOLOGICAL Hx Falls: No - GASTROINTESTINAL Hx Gastrointestinal Disorders: Yes Hx Diverticulitis: Yes - GENITOURINARY/GYNECOLOGICAL Hx Genitourinary Disorders: No - PSYCHIATRIC Hx Psychophysiologic Disorder: No Hx Substance Use: No - SURGICAL HISTORY Hx Surgeries: Yes Hx Cholecystectomy: Yes Hx Hysterectomy: Yes Hx Vascular Surgery: Yes (CEREBRAL ANEURYSM RIGHT AND LEFT. ) Other/Comment: Hx of R and L Brain Aneurysms - ANESTHESIA Hx Anesthesia: Yes Hx Anesthesia Reactions: No Hx Malignant Hyperthermia: No Has any member of the family had a problem w/ anesthesia?: No Meds Allergies/Adverse Reactions: Allergies Allergy/AdvReac Type Severity Reaction Status Date / Time No Known Allergies Allergy Verified 02/11/18 00:34 - Medications Medications: Current Medications Aspirin (Ecotrin) 325 mg PO DAILY [facility] Enoxaparin Sodium (Lovenox) 40 mg SC DAILY [facility] Hydralazine HCl (Apresoline) 10 mg IVP Q6H PRN PRN Reason: Systolic Blood Pressure Insulin Human Regular (Novolin R) 0 unit SC ACHS [facility] PRN Reason: Protocol Last Admin: 02/11/18 17:38 Dose: 4 units Ipratropium [place] (Atrovent) 0.5 mg IH RQ6 [facility] Last Admin: 02/11/18 13:33 Dose: 0.5 mg Lisinopril (Zestril) 5 mg PO DAILY [facility] Last Admin: 02/11/18 11:17 Dose: 5 mg Methylprednisolone (Solu-Medrol) 60 mg IVP Q8H [facility] Last Admin: 02/11/18 17:38 Dose: 60 mg Pantoprazole Sodium (Protonix Inj) 40 mg IVP DAILY [facility] Last Admin: 02/11/18 10:38 Dose: 40 mg Rosuvastatin Calcium (Crestor) 10 mg PO HS [facility] Ticagrelor (Brilinta) 90 mg PO BID [facility] Last Admin: 02/11/18 17:38 Dose: 90 mg Physical Exam - Constitutional Appears: Non-toxic - Head Exam Head Exam: NORMAL INSPECTION - Eye Exam Eye Exam: Normal appearance - ENT Exam ENT Exam: Mucous Membranes Moist - Neck Exam Neck exam: Positive for: Full Rom - Respiratory Exam Respiratory Exam: Decreased Breath Sounds - Cardiovascular Exam Cardiovascular Exam: REGULAR RHYTHM - GI/Abdominal Exam GI & Abdominal Exam: Normal Bowel Sounds - Rectal Exam Rectal Exam: Deferred - Extremities Exam Extremities exam: Negative for: pedal edema - Back Exam Back exam: NORMAL INSPECTION - Neurological Exam Neurological exam: Alert, Oriented x3 - Psychiatric Exam Psychiatric exam: Normal Affect - Skin Skin Exam: Normal Color Results - Vital Signs Recent Vital Signs: Last Vital Signs Temp 98.0 F 02/11/18 07:00 Pulse 94 H 02/11/18 11:42 Resp 20 02/11/18 07:37 BP 203/113 H 02/11/18 10:37 Pulse Ox 96 02/11/18 07:37 - Labs Result Diagrams: 02/11/18 08:37 02/11/18 08:37 Labs: Laboratory Results - last 24 hr 02/11/18 02/11/18 02/11/18 00:39 01:08 01:08 WBC 7.6 RBC 4.84 Hgb 12.6 Hct 37.7 MCV 78.0 L MCH 26.1 L MCHC 33.4 RDW 14.1 Plt Count 244 MPV 8.1 Neut % (Auto) 70.1 Lymph % (Auto) 22.1 [place] % (Auto) 5.8 Eos % (Auto) 1.4 Baso % (Auto) 0.6 Neut # (Auto) 5.3 Lymph # (Auto) 1.7 [place] # (Auto) 0.4 Eos # (Auto) 0.1 Baso # (Auto) 0.0 Neutrophils % (Manual) Lymphocytes % (Manual) Monocytes % (Manual) Platelet Estimate PT 10.6 INR 1.0 APTT 38 H D-Dimer, Quantitative Sodium Potassium Chloride Carbon Dioxide Anion Gap BUN Creatinine Est GFR ( Amer) Est GFR (Non-Af Amer) POC Glucose (mg/dL) 153 H Random Glucose Hemoglobin A1c Calcium Phosphorus Magnesium Total Bilirubin AST ALT Alkaline Phosphatase Total Creatine Kinase CK-MB (Mass) Troponin I NT-Pro-B Natriuret Pep Total Protein Albumin Globulin Albumin/Globulin Ratio Lipase 02/11/18 02/11/18 02/11/18 01:08 02:01 06:50 WBC RBC Hgb Hct MCV MCH MCHC RDW Plt Count MPV Neut % (Auto) Lymph % (Auto) [place] % (Auto) Eos % (Auto) Baso % (Auto) Neut # (Auto) Lymph # (Auto) [place] # (Auto) Eos # (Auto) Baso # (Auto) Neutrophils % (Manual) Lymphocytes % (Manual) Monocytes % (Manual) Platelet Estimate PT INR APTT D-Dimer, Quantitative < 200 Sodium 142 Potassium 3.1 L Chloride 104 Carbon Dioxide 28 Anion Gap 13 BUN 14 Creatinine 0.7 Est GFR ( Amer) > 60 Est GFR (Non-Af Amer) > 60 POC Glucose (mg/dL) 165 H Random Glucose 136 H Hemoglobin A1c Calcium 9.2 Phosphorus Magnesium Total Bilirubin 0.6 AST 22 ALT 22 Alkaline Phosphatase 95 Total Creatine Kinase CK-MB (Mass) Troponin I 0.0680 NT-Pro-B Natriuret Pep 387 Total Protein 7.3 Albumin 4.4 Globulin 3.0 Albumin/Globulin Ratio 1.5 Lipase 33 02/11/18 02/11/18 02/11/18 08:37 08:37 08:37 WBC 6.8 RBC 4.95 Hgb 13.1 Hct 39.1 MCV 78.9 L MCH 26.5 L MCHC 33.6 RDW 14.1 Plt Count 265 MPV 8.4 Neut % (Auto) 89.0 H Lymph % (Auto) 9.6 L [place] % (Auto) 1.1 Eos % (Auto) 0.1 Baso % (Auto) 0.2 Neut # (Auto) 6.0 Lymph # (Auto) 0.6 L [place] # (Auto) 0.1 Eos # (Auto) 0.0 Baso # (Auto) 0.0 Neutrophils % (Manual) 93 H Lymphocytes % (Manual) 6 L Monocytes % (Manual) 1 Platelet Estimate Normal PT INR APTT D-Dimer, Quantitative Sodium 145 Potassium 3.3 L Chloride 104 Carbon Dioxide 29 Anion Gap 15 BUN 11 Creatinine 0.7 Est GFR ( Amer) > 60 Est GFR (Non-Af Amer) > 60 POC Glucose (mg/dL) Random Glucose 159 H Hemoglobin A1c Calcium 8.8 Phosphorus 2.8 Magnesium 2.0 Total Bilirubin 0.5 AST 25 ALT 23 Alkaline Phosphatase 93 Total Creatine Kinase 92 CK-MB (Mass) 4.33 H Troponin I 0.0700 NT-Pro-B Natriuret Pep Total Protein 7.5 Albumin 4.4 Globulin 3.1 Albumin/Globulin Ratio 1.4 Lipase 02/11/18 02/11/18 02/11/18 08:37 09:22 09:33 WBC RBC Hgb Hct MCV MCH MCHC RDW Plt Count MPV Neut % (Auto) Lymph % (Auto) [place] % (Auto) Eos % (Auto) Baso % (Auto) Neut # (Auto) Lymph # (Auto) [place] # (Auto) Eos # (Auto) Baso # (Auto) Neutrophils % (Manual) Lymphocytes % (Manual) Monocytes % (Manual) Platelet Estimate PT INR APTT D-Dimer, Quantitative Sodium Potassium Chloride Carbon Dioxide Anion Gap BUN Creatinine Est GFR ( Amer) Est GFR (Non-Af Amer) POC Glucose (mg/dL) 192 H Random Glucose Hemoglobin A1c 6.5 Calcium Phosphorus Magnesium Total Bilirubin AST ALT Alkaline Phosphatase Total Creatine Kinase 99 CK-MB (Mass) 3.72 H Troponin I 0.0670 NT-Pro-B Natriuret Pep Total Protein Albumin Globulin Albumin/Globulin Ratio Lipase 02/11/18 02/11/18 11:52 17:01 WBC RBC Hgb Hct MCV MCH MCHC RDW Plt Count MPV Neut % (Auto) Lymph % (Auto) [place] % (Auto) Eos % (Auto) Baso % (Auto) Neut # (Auto) Lymph # (Auto) [place] # (Auto) Eos # (Auto) Baso # (Auto) Neutrophils % (Manual) Lymphocytes % (Manual) Monocytes % (Manual) Platelet Estimate PT INR APTT D-Dimer, Quantitative Sodium Potassium Chloride Carbon Dioxide Anion Gap BUN Creatinine Est GFR ( Amer) Est GFR (Non-Af Amer) POC Glucose (mg/dL) 190 H 219 H Random Glucose Hemoglobin A1c Calcium Phosphorus Magnesium Total Bilirubin AST ALT Alkaline Phosphatase Total Creatine Kinase CK-MB (Mass) Troponin I NT-Pro-B Natriuret Pep Total Protein Albumin Globulin Albumin/Globulin Ratio Lipase - EKG Data EKG Interpreted by: Myself EKG shows normal: Sinus rhythm Assessment & Plan (1) CHF (congestive heart failure) Assessment and Plan: patient will need evaluation of ventricular function. recommend echocardiogram Status: Acute (2) Chest pain Assessment and Plan: check cardiac enzymes. will assess for regional wall motion abnormalities. Status: Acute (3) Hypertension Assessment and Plan: consider change to ARB, Cozaar 50 mg daily Status: Acute
--- NOTE | 2018-02-11 20:50 | CP.PCM.HP ---
Past Patient History - Infectious Disease Hx of Infectious Diseases: None - Past Medical History & Family History Past Medical History?: Yes Past Family History: Reviewed and not pertinent - Past Social History Smoking Status: Former Smoker Chewing Tobacco Use: No Cigar Use: No Alcohol: None Drugs: Denies - CARDIAC Hx Cardiac Disorders: Yes Hx Hypertension: Yes - PULMONARY Hx Respiratory Disorders: Yes Hx Asthma: Yes Hx Chronic Obstructive Pulmonary Disease (COPD): Yes - NEUROLOGICAL Hx Neurological Disorder: No Other/Comment: Aneurysm in 2002,Clipped @ [facility] R side of head,L side Clipped last year. @ [facility] - HEENT Hx HEENT Problems: No - RENAL Hx Chronic Kidney Disease: No - ENDOCRINE/METABOLIC Hx Endocrine Disorders: Yes Hx Diabetes Mellitus Type 1: (no meds) Hx Diabetes Mellitus Type 2: Yes - HEMATOLOGICAL/ONCOLOGICAL Hx Blood Disorders: Yes Hx Blood Transfusions: Yes - INTEGUMENTARY Hx Dermatological Problems: No - MUSCULOSKELETAL/RHEUMATOLOGICAL Hx Falls: No - GASTROINTESTINAL Hx Gastrointestinal Disorders: Yes Hx Diverticulitis: Yes - GENITOURINARY/GYNECOLOGICAL Hx Genitourinary Disorders: No - PSYCHIATRIC Hx Psychophysiologic Disorder: No Hx Substance Use: No - SURGICAL HISTORY Hx Surgeries: Yes Hx Cholecystectomy: Yes Hx Hysterectomy: Yes Hx Vascular Surgery: Yes (CEREBRAL ANEURYSM RIGHT AND LEFT. ) Other/Comment: Hx of R and L Brain Aneurysms - ANESTHESIA Hx Anesthesia: Yes Hx Anesthesia Reactions: No Hx Malignant Hyperthermia: No Has any member of the family had a problem w/ anesthesia?: No Meds Allergies/Adverse Reactions: Allergies Allergy/AdvReac Type Severity Reaction Status Date / Time No Known Allergies Allergy Verified 02/11/18 00:34 Physical Exam - Constitutional Appears: Well - Head Exam Head Exam: ATRAUMATIC, NORMAL INSPECTION, NORMOCEPHALIC - Eye Exam Eye Exam: EOMI, Normal appearance, PERRL Pupil Exam: NORMAL ACCOMODATION, PERRL - ENT Exam ENT Exam: Mucous Membranes Moist, Normal Exam - Neck Exam Neck exam: Positive for: Normal Inspection - Respiratory Exam Respiratory Exam: Decreased Breath Sounds - Cardiovascular Exam Cardiovascular Exam: REGULAR RHYTHM, +S1, +S2 - GI/Abdominal Exam GI & Abdominal Exam: Diminished Bowel Sounds, Soft - Rectal Exam Rectal Exam: Deferred Results - Vital Signs Recent Vital Signs: Last Vital Signs Temp 97.8 F 02/11/18 15:00 Pulse 103 H 02/11/18 15:00 Resp 20 02/11/18 15:00 BP 157/75 H 02/11/18 15:00 Pulse Ox 97 02/11/18 15:00 - Labs Result Diagrams: 02/11/18 08:37 02/11/18 08:37 Labs: Laboratory Results - last 24 hr 02/11/18 02/11/18 02/11/18 00:39 01:08 01:08 WBC 7.6 RBC 4.84 Hgb 12.6 Hct 37.7 MCV 78.0 L MCH 26.1 L MCHC 33.4 RDW 14.1 Plt Count 244 MPV 8.1 Neut % (Auto) 70.1 Lymph % (Auto) 22.1 [place] % (Auto) 5.8 Eos % (Auto) 1.4 Baso % (Auto) 0.6 Neut # (Auto) 5.3 Lymph # (Auto) 1.7 [place] # (Auto) 0.4 Eos # (Auto) 0.1 Baso # (Auto) 0.0 Neutrophils % (Manual) Lymphocytes % (Manual) Monocytes % (Manual) Platelet Estimate PT 10.6 INR 1.0 APTT 38 H D-Dimer, Quantitative Sodium Potassium Chloride Carbon Dioxide Anion Gap BUN Creatinine Est GFR ( Amer) Est GFR (Non-Af Amer) POC Glucose (mg/dL) 153 H Random Glucose Hemoglobin A1c Calcium Phosphorus Magnesium Total Bilirubin AST ALT Alkaline Phosphatase Total Creatine Kinase CK-MB (Mass) Troponin I NT-Pro-B Natriuret Pep Total Protein Albumin Globulin Albumin/Globulin Ratio Lipase 02/11/18 02/11/18 02/11/18 01:08 02:01 06:50 WBC RBC Hgb Hct MCV MCH MCHC RDW Plt Count MPV Neut % (Auto) Lymph % (Auto) [place] % (Auto) Eos % (Auto) Baso % (Auto) Neut # (Auto) Lymph # (Auto) [place] # (Auto) Eos # (Auto) Baso # (Auto) Neutrophils % (Manual) Lymphocytes % (Manual) Monocytes % (Manual) Platelet Estimate PT INR APTT D-Dimer, Quantitative < 200 Sodium 142 Potassium 3.1 L Chloride 104 Carbon Dioxide 28 Anion Gap 13 BUN 14 Creatinine 0.7 Est GFR ( Amer) > 60 Est GFR (Non-Af Amer) > 60 POC Glucose (mg/dL) 165 H Random Glucose 136 H Hemoglobin A1c Calcium 9.2 Phosphorus Magnesium Total Bilirubin 0.6 AST 22 ALT 22 Alkaline Phosphatase 95 Total Creatine Kinase CK-MB (Mass) Troponin I 0.0680 NT-Pro-B Natriuret Pep 387 Total Protein 7.3 Albumin 4.4 Globulin 3.0 Albumin/Globulin Ratio 1.5 Lipase 33 02/11/18 02/11/18 02/11/18 08:37 08:37 08:37 WBC 6.8 RBC 4.95 Hgb 13.1 Hct 39.1 MCV 78.9 L MCH 26.5 L MCHC 33.6 RDW 14.1 Plt Count 265 MPV 8.4 Neut % (Auto) 89.0 H Lymph % (Auto) 9.6 L [place] % (Auto) 1.1 Eos % (Auto) 0.1 Baso % (Auto) 0.2 Neut # (Auto) 6.0 Lymph # (Auto) 0.6 L [place] # (Auto) 0.1 Eos # (Auto) 0.0 Baso # (Auto) 0.0 Neutrophils % (Manual) 93 H Lymphocytes % (Manual) 6 L Monocytes % (Manual) 1 Platelet Estimate Normal PT INR APTT D-Dimer, Quantitative Sodium 145 Potassium 3.3 L Chloride 104 Carbon Dioxide 29 Anion Gap 15 BUN 11 Creatinine 0.7 Est GFR ( Amer) > 60 Est GFR (Non-Af Amer) > 60 POC Glucose (mg/dL) Random Glucose 159 H Hemoglobin A1c Calcium 8.8 Phosphorus 2.8 Magnesium 2.0 Total Bilirubin 0.5 AST 25 ALT 23 Alkaline Phosphatase 93 Total Creatine Kinase 92 CK-MB (Mass) 4.33 H Troponin I 0.0700 NT-Pro-B Natriuret Pep Total Protein 7.5 Albumin 4.4 Globulin 3.1 Albumin/Globulin Ratio 1.4 Lipase 02/11/18 02/11/18 02/11/18 08:37 09:22 09:33 WBC RBC Hgb Hct MCV MCH MCHC RDW Plt Count MPV Neut % (Auto) Lymph % (Auto) [place] % (Auto) Eos % (Auto) Baso % (Auto) Neut # (Auto) Lymph # (Auto) [place] # (Auto) Eos # (Auto) Baso # (Auto) Neutrophils % (Manual) Lymphocytes % (Manual) Monocytes % (Manual) Platelet Estimate PT INR APTT D-Dimer, Quantitative Sodium Potassium Chloride Carbon Dioxide Anion Gap BUN Creatinine Est GFR ( Amer) Est GFR (Non-Af Amer) POC Glucose (mg/dL) 192 H Random Glucose Hemoglobin A1c 6.5 Calcium Phosphorus Magnesium Total Bilirubin AST ALT Alkaline Phosphatase Total Creatine Kinase 99 CK-MB (Mass) 3.72 H Troponin I 0.0670 NT-Pro-B Natriuret Pep Total Protein Albumin Globulin Albumin/Globulin Ratio Lipase 02/11/18 02/11/18 11:52 17:01 WBC RBC Hgb Hct MCV MCH MCHC RDW Plt Count MPV Neut % (Auto) Lymph % (Auto) [place] % (Auto) Eos % (Auto) Baso % (Auto) Neut # (Auto) Lymph # (Auto) [place] # (Auto) Eos # (Auto) Baso # (Auto) Neutrophils % (Manual) Lymphocytes % (Manual) Monocytes % (Manual) Platelet Estimate PT INR APTT D-Dimer, Quantitative Sodium Potassium Chloride Carbon Dioxide Anion Gap BUN Creatinine Est GFR ( Amer) Est GFR (Non-Af Amer) POC Glucose (mg/dL) 190 H 219 H Random Glucose Hemoglobin A1c Calcium Phosphorus Magnesium Total Bilirubin AST ALT Alkaline Phosphatase Total Creatine Kinase CK-MB (Mass) Troponin I NT-Pro-B Natriuret Pep Total Protein Albumin Globulin Albumin/Globulin Ratio Lipase Assessment & Plan - Assessment and Plan (Free Text) Plan: Solu-Medrol DuoNeb Pulmonary consult Cardiology consult Aspirin Brilinta Steroid Labetalol We will add the Symbicort
[2018-02-12 01:22] LABS: SQUAMOUS EPITHIAL 2 /hpf (0-5); URINE BILIRUBIN NEGATIVE (NEGATIVE); URINE BLOOD NEGATIVE (NEGATIVE); URINE CLARITY Hazy (Clear); URINE COLOR Yellow (YELLOW); URINE GLUCOSE (UA) 3+ mg/dL (Normal); URINE LEUKOCYTE ESTERASE NEG Leu/uL (Negative); URINE PROTEIN 1+ mg/dL (NEGATIVE); URINE UROBILINOGEN NORMAL mg/dL (0.2-1.0)
[2018-02-12] MEDS: Ipratropium 0.02% Inhal Soln (0.5 mg/2.5 ml) UD IH SCH ×4 (01:25→19:08)
[2018-02-12] MEDS: MethylPREDNISolone 40 mg Vial IVP SCH ×3 (01:57→21:27)
[2018-02-12 07:40] LABS: BASO % 0.1 % (0.0-2.0); HEMOGLOBIN 12.9 g/dL (11.0-16.0); LYMPH # 1.3 K/uL (1.0-4.3); LYMPH % 8.8 % (20.0-40.0); MEAN CELL VOLUME 79.2 fL (81.0-99.0); MEAN CORPUSCULAR HGB CONC 32.8 g/dL (33.0-37.0); MEAN PLATELET VOLUME 8.4 fL (7.2-11.7); MONO # 0.2 K/uL (0.0-0.8); MONO % 1.6 % (0.0-10.0); NEUT # 13.6 K/uL (1.8-7.0); NEUT % 89.5 % (50.0-75.0); NRBC % 0.1 % (0.0-2.0); PLATELET COUNT 297 K/uL (130-400); RBC 4.97 Mil/uL (3.80-5.20); RED CELL DISTRIBUTION WIDTH 14.7 % (11.5-14.5); WHITE BLOOD COUNT 15.2 K/uL (4.8-10.8)
[2018-02-12 07:50] LABS: ALB/GLOB RATIO 1.4 (1.0-2.1); ALBUMIN 4.3 g/dL (3.5-5.0); ALT/SGPT 18 U/L (9-52); AST/SGOT 29 U/L (14-36); BLOOD UREA NITROGEN 18 mg/dL (7-17); CALCIUM 9.5 mg/dl (8.6-10.4); GFR AFRICAN-AMERICAN > 60; GFR NON-AFRICAN AMERICAN > 60; HDL CHOLESTEROL 57 mg/dL (30-70)
[2018-02-12 08:15] LABS: LDL CHOLESTEROL 204 mg/dL (0-129)
[2018-02-12] MEDS: (Novolin R) Insulin Human Regular 100 units/ml vial SC SCH ×4 (08:51→21:25)
[2018-02-12 08:54] LABS: LYMPHOCYTE 6 % (20-40); MONOCYTE 1 % (0-10); NEUTROPHIL 93 % (50-75); PLATELET ESTIMATE NORMAL (NORMAL); TOTAL CELLS COUNTED 100
[2018-02-12] MEDS: Enoxaparin 40 mg Syringe SC SCH (09:15)
[2018-02-12] MEDS: Aspirin 325 mg EC Tablets PO SCH (09:16)
[2018-02-12] MEDS: Fluticasone-Salmeterol 250-50mcg Diskus INH SCH ×2 (10:00→19:09)
--- NOTE | 2018-02-12 10:34 | CP.PCM.PN ---
Subjective - Date & Time of Evaluation Date of Evaluation: 02/12/18 Time of Evaluation: 10:31 - Subjective Subjective: PGY-[address] Navarrete's service: Pt seen and examined at bedside. Nursing reports elevated BP and headache this AM. Patient given tylenol and Hydralazine by house doctor. Patient reports headache improved on Tylenol. Vitals show improved BP after hydralazine. Pt reports breathing improved since admission. Shie is for ECHO this AM. Objective - Vital Signs/Intake and Output Vital Signs (last 24 hours): Temp Pulse Resp BP Pulse Ox 97.3 F L 109 H 20 147/85 97 02/12/18 07:30 02/12/18 07:52 02/12/18 07:30 02/12/18 07:30 02/12/18 07:30 Intake and Output: 02/12/18 02/12/18 06:59 18:59 Intake Total 250 Balance 250 - Medications Medications: Current Medications Acetaminophen (Tylenol 325mg Tab) 650 mg PO Q6 PRN PRN Reason: Headache Last Admin: 02/12/18 07:05 Dose: 650 mg Aspirin (Ecotrin) 325 mg PO DAILY [facility] Last Admin: 02/12/18 09:16 Dose: 325 mg Enoxaparin Sodium (Lovenox) 40 mg SC DAILY [facility] Last Admin: 02/12/18 09:15 Dose: 40 mg Hydralazine HCl (Apresoline) 10 mg IVP Q6H PRN PRN Reason: Systolic Blood Pressure Last Admin: 02/12/18 06:51 Dose: 10 mg Insulin Human Regular (Novolin R) 0 unit SC ACHS [facility] PRN Reason: Protocol Last Admin: 02/12/18 08:51 Dose: 4 units Ipratropium [place] (Atrovent) 0.5 mg IH RQ6 [facility] Last Admin: 02/12/18 07:24 Dose: 0.5 mg Lisinopril (Zestril) 5 mg PO DAILY [facility] Last Admin: 02/12/18 09:16 Dose: 5 mg Methylprednisolone (Solu-Medrol) 60 mg IVP Q8H [facility] Last Admin: 02/12/18 09:15 Dose: 60 mg Pantoprazole Sodium (Protonix Inj) 40 mg IVP DAILY [facility] Last Admin: 02/12/18 09:16 Dose: 40 mg Rosuvastatin Calcium (Crestor) 10 mg PO HS [facility] Last Admin: 02/11/18 21:19 Dose: 10 mg Fluticasone/Salmeterol (Advair Diskus 250/50) 1 puff INH RQ12 [facility] Ticagrelor (Brilinta) 90 mg PO BID [facility] Last Admin: 02/12/18 09:16 Dose: 90 mg - Labs Labs: 02/12/18 07:28 02/12/18 07:28 PT 10.6 SECONDS (9.7-12.2) 02/11/18 01:08 INR 1.0 02/11/18 01:08 APTT 38 SECONDS (21-34) H 02/11/18 01:08 - Additional Findings Additional findings: - Constitutional Appears: Non-toxic, No acute distress - Head Exam Head Exam: ATRAUMATIC, NORMAL INSPECTION, NORMOCEPHALIC - Eye Exam Eye Exam: EOMI, Normal appearance Pupil Exam: NORMAL ACCOMODATION - ENT Exam ENT Exam: Mucous Membranes Moist - Neck Exam Neck Exam: Full ROM - Respiratory Exam Respiratory Exam: Decreased Breath Sounds, Wheezes improved, Respiratory Distress. absent: Rales - Cardiovascular Exam Cardiovascular Exam: Tachycardia, +S1, +S2 - GI/Abdominal Exam GI & Abdominal Exam: Soft, Normal Bowel Sounds. absent: Rigid, Tenderness - Rectal Exam Rectal Exam: Deferred - Extremities Exam Extremities Exam: Full ROM, Normal Inspection - Back Exam Back Exam: NORMAL INSPECTION - Neurological Exam Neurological Exam: Alert, Awake, Oriented x3 - Psychiatric Exam Psychiatric exam: Normal Affect, Normal Mood - Skin Skin Exam: Dry, Normal Color, Warm Assessment and Plan - Assessment and Plan (Free Text) Plan: A/P: Patient is a 62 year old female with past medical history of Hypertension, HLD, DM Type 2, Cerebral aneurysm s/p clippings who presented to the ED with chest pain and dyspnea. Chest Pain R/O ACS, USA -Stable, afebrile -Initial troponin negative x 3 -Received ASA 325mg PO x 1 dose in the ED Continue ASA 325mg PO daily STOP Brilinta 90mg PO BID per cardio recommendation Cardiology on consult, Dr. Schwartz help appreciated - Change lisinopril to Cozaar - No documented CAD so stop Brilinta ASCVD risk: 25.1% -Increase statin to high dose Crestor 40mg PO HS Start Cozaar 50mg PO Daily f/u ECHO History of Diabetes Mellitus -HgA1C 6.5, well controlled -High dose ISS, accuchecks ACHS -Will hold Metformin dose at this time -Urine microalbumin, urine creatinine ordered Crestor 40mg PO HS Losartan 50mg PO Daily Resp Failure in setting of USA Hx of obstructive lung disease (asthma, copd) Etiology: COPD exacerbation D-dimer negative CXR (02/11/18): NAD -Atrovent 0.5mg Q6H ZAC x 24 hours -Recieved Solumedrol 125mg IVP in the ED -Solumedrol tapered to 40mg IV Q12H -CPAP PRN -Patient has a history of asthma, uses albuterol inhaler 4x week and 2x a night for shortness of breath -Patient is a former smoker, quit 6 years ago; smoked 1ppd -Wells criteria 1.5 for tachycardia, therefore no need for PE workup at this time, D Dimer on admission was negative Pulmonology consulted, help appreciated - continue taper of IV steroid Leukocytosis Etiology: Patient on solumedrol Afebrile Monitor Hypertension -S/P Labetolol 10mg IVP during MANAGER [employer]REACH -Hydralazine 10mg Q6H IVP prn SBP > 160 -Discontinued Lisinopril 5mg PO daily per Cardio reccs -Start Cozaar 50mg PO DAily History of Hyperlipidemia -Lipid panel T chol 284, LDL 204, HDL 57, TG 137 -Increased Crestor to 40mg PO HS (ASCVD risk: 25.1%) Hypokalemia Resolved GI/DVT ppx: Protonix 40mg IVP daily Lovenox 40mg SC daily SCDs Physical therapy evaluation ordered Plan discussed with Dr Ricardo Hand PGY2
--- NOTE | 2018-02-12 11:38 | CP.PCM.PN ---
Subjective - Date & Time of Evaluation Date of Evaluation: 02/12/18 Time of Evaluation: 11:00 - Subjective Subjective: has cough, dyspnea at rest. Objective - Vital Signs/Intake and Output Vital Signs (last 24 hours): Temp Pulse Resp BP Pulse Ox 97.3 F L 110 H 20 147/85 97 02/12/18 07:30 02/12/18 11:22 02/12/18 07:30 02/12/18 07:30 02/12/18 07:30 Intake and Output: 02/12/18 02/12/18 06:59 18:59 Intake Total 250 Balance 250 - Medications Medications: Current Medications Acetaminophen (Tylenol 325mg Tab) 650 mg PO Q6 PRN PRN Reason: Headache Last Admin: 02/12/18 07:05 Dose: 650 mg Aspirin (Ecotrin) 325 mg PO DAILY [facility] Last Admin: 02/12/18 09:16 Dose: 325 mg Enoxaparin Sodium (Lovenox) 40 mg SC DAILY [facility] Last Admin: 02/12/18 09:15 Dose: 40 mg Hydralazine HCl (Apresoline) 10 mg IVP Q6H PRN PRN Reason: Systolic Blood Pressure Last Admin: 02/12/18 06:51 Dose: 10 mg Insulin Human Regular (Novolin R) 0 unit SC ACHS [facility] PRN Reason: Protocol Last Admin: 02/12/18 08:51 Dose: 4 units Ipratropium [place] (Atrovent) 0.5 mg IH RQ6 [facility] Last Admin: 02/12/18 07:24 Dose: 0.5 mg Losartan Potassium (Cozaar) 50 mg PO DAILY [facility] Methylprednisolone (Solu-Medrol) 60 mg IVP Q8H [facility] Last Admin: 02/12/18 09:15 Dose: 60 mg Pantoprazole Sodium (Protonix Inj) 40 mg IVP DAILY [facility] Last Admin: 02/12/18 09:16 Dose: 40 mg Rosuvastatin Calcium (Crestor) 40 mg PO HS [facility] Fluticasone/Salmeterol (Advair Diskus 250/50) 1 puff INH RQ12 [facility] Ticagrelor (Brilinta) 90 mg PO BID [facility] Last Admin: 02/12/18 09:16 Dose: 90 mg - Labs Labs: 02/12/18 07:28 02/12/18 07:28 PT 10.6 SECONDS (9.7-12.2) 02/11/18 01:08 INR 1.0 02/11/18 01:08 APTT 38 SECONDS (21-34) H 02/11/18 01:08 - Constitutional Appears: Non-toxic - Head Exam Head Exam: NORMAL INSPECTION - Eye Exam Eye Exam: Normal appearance - ENT Exam ENT Exam: Mucous Membranes Moist - Neck Exam Neck Exam: Full ROM - Respiratory Exam Respiratory Exam: Wheezes - Cardiovascular Exam Cardiovascular Exam: REGULAR RHYTHM - GI/Abdominal Exam GI & Abdominal Exam: Normal Bowel Sounds - Rectal Exam Rectal Exam: Deferred - Extremities Exam Extremities Exam: absent: Pedal Edema - Back Exam Back Exam: NORMAL INSPECTION - Neurological Exam Neurological Exam: Alert - Psychiatric Exam Psychiatric exam: Normal Affect - Skin Skin Exam: Normal Color Assessment and Plan (1) CHF (congestive heart failure) Assessment & Plan: unclear systolic function. recommend echo. Status: Acute (2) Chest pain Assessment & Plan: atypical features. negative troponin. of note patient does not have documented CAD. recommend d/c Brilinta Status: Acute (3) Hypertension Assessment & Plan: blood pressure control Status: Acute
--- NOTE | 2018-02-12 11:57 | CP.PCM.PN ---
Subjective - Date & Time of Evaluation Date of Evaluation: 02/12/18 Time of Evaluation: 11:55 - Subjective Subjective: PT ALERT, STILL WITH ANT CP, LESS SOB., LESS COUGH. ROS ; OTHERWISE NEG Objective - Vital Signs/Intake and Output Vital Signs (last 24 hours): Temp Pulse Resp BP Pulse Ox 97.3 F L 110 H 20 147/85 97 02/12/18 07:30 02/12/18 11:22 02/12/18 07:30 02/12/18 07:30 02/12/18 07:30 Intake and Output: 02/12/18 02/12/18 06:59 18:59 Intake Total 250 Balance 250 - Medications Medications: Current Medications Acetaminophen (Tylenol 325mg Tab) 650 mg PO Q6 PRN PRN Reason: Headache Last Admin: 02/12/18 07:05 Dose: 650 mg Aspirin (Ecotrin) 325 mg PO DAILY [facility] Last Admin: 02/12/18 09:16 Dose: 325 mg Enoxaparin Sodium (Lovenox) 40 mg SC DAILY [facility] Last Admin: 02/12/18 09:15 Dose: 40 mg Hydralazine HCl (Apresoline) 10 mg IVP Q6H PRN PRN Reason: Systolic Blood Pressure Last Admin: 02/12/18 06:51 Dose: 10 mg Insulin Human Regular (Novolin R) 0 unit SC ACHS [facility] PRN Reason: Protocol Last Admin: 02/12/18 08:51 Dose: 4 units Ipratropium [place] (Atrovent) 0.5 mg IH RQ6 [facility] Last Admin: 02/12/18 07:24 Dose: 0.5 mg Losartan Potassium (Cozaar) 50 mg PO DAILY [facility] Methylprednisolone (Solu-Medrol) 60 mg IVP Q8H [facility] Last Admin: 02/12/18 09:15 Dose: 60 mg Pantoprazole Sodium (Protonix Inj) 40 mg IVP DAILY [facility] Last Admin: 02/12/18 09:16 Dose: 40 mg Rosuvastatin Calcium (Crestor) 40 mg PO HS [facility] Fluticasone/Salmeterol (Advair Diskus 250/50) 1 puff INH RQ12 [facility] Ticagrelor (Brilinta) 90 mg PO BID [facility] Last Admin: 02/12/18 09:16 Dose: 90 mg - Labs Labs: 02/12/18 07:28 02/12/18 07:28 PT 10.6 SECONDS (9.7-12.2) 02/11/18 01:08 INR 1.0 02/11/18 01:08 APTT 38 SECONDS (21-34) H 02/11/18 01:08 - Constitutional Appears: No Acute Distress, Chronically Ill - Head Exam Head Exam: ATRAUMATIC, NORMOCEPHALIC - Eye Exam Eye Exam: EOMI, Normal appearance - ENT Exam ENT Exam: Mucous Membranes Moist - Neck Exam Neck Exam: Normal Inspection - Respiratory Exam Respiratory Exam: Wheezes Additional comments: BETTER AIR MOVEMENT. - Cardiovascular Exam Cardiovascular Exam: RRR, +S1, +S2 - GI/Abdominal Exam GI & Abdominal Exam: Soft. absent: Tenderness - Rectal Exam Rectal Exam: Deferred - Extremities Exam Extremities Exam: absent: Calf Tenderness, Pedal Edema - Back Exam Back Exam: absent: CVA tenderness (L), CVA tenderness (R) - Neurological Exam Neurological Exam: Alert, Awake, CN II-XII Intact, Oriented x3 - Psychiatric Exam Psychiatric exam: Normal Mood - Skin Skin Exam: absent: Rash Assessment and Plan (1) COPD exacerbation Status: Acute (2) CHF (congestive heart failure) Status: Acute (3) Hypertension Status: Acute (4) Respiratory failure Status: Acute (5) Unstable angina Status: Acute (6) Obesity Status: Acute - Assessment and Plan (Free Text) Assessment: RESP STATUS IMPROVING., LESS BRONCHOSPASM., TAPER STEROIDS., CONT NEB BD., MONITOR O2 SAT. CXR REVIEWED. CARDIO W/U IN PROGRESS., ECHO PENDING., CONT CPAP QHS. PROG GUARDED., DISCUSSED WITH STAFF AT LENGTH AND CARDIO.
--- NOTE | 2018-02-12 14:32 | CP.PCM.PN ---
Subjective - Date & Time of Evaluation Date of Evaluation: 02/12/18 Time of Evaluation: 11:45 - Subjective Subjective: clinically same Objective - Vital Signs/Intake and Output Vital Signs (last 24 hours): Temp Pulse Resp BP Pulse Ox 97.3 F L 110 H 20 147/85 97 02/12/18 07:30 02/12/18 11:22 02/12/18 07:30 02/12/18 07:30 02/12/18 07:30 Intake and Output: 02/12/18 02/12/18 06:59 18:59 Intake Total 250 Balance 250 - Medications Medications: Current Medications Acetaminophen (Tylenol 325mg Tab) 650 mg PO Q6 PRN PRN Reason: Headache Last Admin: 02/12/18 07:05 Dose: 650 mg Aspirin (Ecotrin) 325 mg PO DAILY [facility] Last Admin: 02/12/18 09:16 Dose: 325 mg Enoxaparin Sodium (Lovenox) 40 mg SC DAILY [facility] Last Admin: 02/12/18 09:15 Dose: 40 mg Hydralazine HCl (Apresoline) 10 mg IVP Q6H PRN PRN Reason: Systolic Blood Pressure Last Admin: 02/12/18 06:51 Dose: 10 mg Insulin Human Regular (Novolin R) 0 unit SC ACHS [facility] PRN Reason: Protocol Last Admin: 02/12/18 12:59 Dose: 8 units Ipratropium [place] (Atrovent) 0.5 mg IH RQ6 [facility] Last Admin: 02/12/18 13:47 Dose: Not Given Losartan Potassium (Cozaar) 50 mg PO DAILY [facility] Methylprednisolone (Solu-Medrol) 40 mg IVP Q12H [facility] Pantoprazole Sodium (Protonix Inj) 40 mg IVP DAILY [facility] Last Admin: 02/12/18 09:16 Dose: 40 mg Rosuvastatin Calcium (Crestor) 40 mg PO HS [facility] Fluticasone/Salmeterol (Advair Diskus 250/50) 1 puff INH RQ12 [facility] Last Admin: 02/12/18 10:00 Dose: Not Given - Labs Labs: 02/12/18 07:28 02/12/18 07:28 PT 10.6 SECONDS (9.7-12.2) 02/11/18 01:08 INR 1.0 02/11/18 01:08 APTT 38 SECONDS (21-34) H 02/11/18 01:08 - Constitutional Appears: Well - Head Exam Head Exam: ATRAUMATIC, NORMAL INSPECTION, NORMOCEPHALIC - Eye Exam Eye Exam: EOMI, Normal appearance, PERRL Pupil Exam: NORMAL ACCOMODATION, PERRL - ENT Exam ENT Exam: Mucous Membranes Moist, Normal Exam - Neck Exam Neck Exam: Full ROM, Normal Inspection. absent: Lymphadenopathy - Respiratory Exam Respiratory Exam: Decreased Breath Sounds - Cardiovascular Exam Cardiovascular Exam: REGULAR RHYTHM, +S1, +S2 - GI/Abdominal Exam GI & Abdominal Exam: Soft, Diminished Bowel Sounds - Rectal Exam Rectal Exam: Deferred
[2018-02-13] MEDS: Ipratropium 0.02% Inhal Soln (0.5 mg/2.5 ml) UD IH SCH ×4 (01:14→19:38)
[2018-02-13 07:24] LABS: HEMOGLOBIN 12.4 g/dL (11.0-16.0); LYMPH % 7.5 % (20.0-40.0); MEAN CORPUSCULAR HEMOGLOBIN 25.9 pg (27.0-31.0); MEAN CORPUSCULAR HGB CONC 32.8 g/dL (33.0-37.0); MEAN PLATELET VOLUME 8.8 fL (7.2-11.7); MONO # 0.5 K/uL (0.0-0.8); MONO % 3.4 % (0.0-10.0); NEUT % 89.1 % (50.0-75.0); PLATELET COUNT 285 K/uL (130-400); RBC 4.81 Mil/uL (3.80-5.20); RED CELL DISTRIBUTION WIDTH 14.7 % (11.5-14.5); WHITE BLOOD COUNT 13.5 K/uL (4.8-10.8)
[2018-02-13 07:27] LABS: ALB/GLOB RATIO 1.5 (1.0-2.1); ALT/SGPT 15 U/L (9-52); AST/SGOT 23 U/L (14-36); BLOOD UREA NITROGEN 21 mg/dL (7-17); CALCIUM 9.2 mg/dl (8.6-10.4); GFR AFRICAN-AMERICAN > 60; GFR NON-AFRICAN AMERICAN > 60
[2018-02-13] MEDS: (Novolin R) Insulin Human Regular 100 units/ml vial SC SCH ×4 (08:45→22:32)
[2018-02-13] MEDS: MethylPREDNISolone 40 mg Vial IVP SCH (09:11)
[2018-02-13] MEDS: Enoxaparin 40 mg Syringe SC SCH (09:12)
[2018-02-13] MEDS: Aspirin 325 mg EC Tablets PO SCH (09:12)
[2018-02-13] MEDS: Fluticasone-Salmeterol 250-50mcg Diskus INH SCH ×2 (09:17→19:39)
[2018-02-13 09:43] LABS: LYMPHOCYTE 6 % (20-40); MONOCYTE 2 % (0-10); NEUTROPHIL 92 % (50-75); PLATELET ESTIMATE NORMAL (NORMAL); TOTAL CELLS COUNTED 100
[2018-02-13 09:44] LABS: OVALOCYTES SLIGHT
--- NOTE | 2018-02-13 11:45 | CP.PCM.PN ---
Subjective - Date & Time of Evaluation Date of Evaluation: 02/13/18 Time of Evaluation: 11:43 - Subjective Subjective: PT ALERT, FEELS BETTER. LESS COUGH. LESS CP. ROS; OTHERWISE NEG. Objective - Vital Signs/Intake and Output Vital Signs (last 24 hours): Temp Pulse Resp BP Pulse Ox 98.1 F 100 H 20 159/87 H 96 02/13/18 07:00 02/13/18 08:38 02/13/18 07:00 02/13/18 08:38 02/13/18 07:00 Intake and Output: 02/13/18 02/13/18 06:59 18:59 Intake Total 540 Balance 540 - Medications Medications: Current Medications Acetaminophen (Tylenol 325mg Tab) 650 mg PO Q6 PRN PRN Reason: Headache Last Admin: 02/13/18 00:43 Dose: 650 mg Aspirin (Ecotrin) 325 mg PO DAILY [facility] Last Admin: 02/13/18 09:12 Dose: 325 mg Enoxaparin Sodium (Lovenox) 40 mg SC DAILY [facility] Last Admin: 02/13/18 09:12 Dose: 40 mg Hydralazine HCl (Apresoline) 10 mg IVP Q6H PRN PRN Reason: Systolic Blood Pressure Last Admin: 02/13/18 00:17 Dose: 10 mg Insulin Human Regular (Novolin R) 0 unit SC ACHS [facility] PRN Reason: Protocol Last Admin: 02/13/18 08:45 Dose: 2 units Ipratropium [place] (Atrovent) 0.5 mg IH RQ6 [facility] Last Admin: 02/13/18 01:14 Dose: 0.5 mg Losartan Potassium (Cozaar) 50 mg PO DAILY [facility] Last Admin: 02/13/18 09:12 Dose: 50 mg Methylprednisolone (Solu-Medrol) 40 mg IVP Q12H [facility] Last Admin: 02/13/18 09:11 Dose: 40 mg Pantoprazole Sodium (Protonix Inj) 40 mg IVP DAILY [facility] Last Admin: 02/13/18 09:12 Dose: 40 mg Rosuvastatin Calcium (Crestor) 40 mg PO HS [facility] Last Admin: 02/12/18 21:26 Dose: 40 mg Fluticasone/Salmeterol (Advair Diskus 250/50) 1 puff INH RQ12 [facility] Last Admin: 02/12/18 19:09 Dose: 1 puff - Labs Labs: 02/13/18 06:38 02/13/18 06:38 PT 10.6 SECONDS (9.7-12.2) 02/11/18 01:08 INR 1.0 02/11/18 01:08 APTT 38 SECONDS (21-34) H 02/11/18 01:08 - Constitutional Appears: No Acute Distress, Chronically Ill - Head Exam Head Exam: ATRAUMATIC, NORMOCEPHALIC - Eye Exam Eye Exam: EOMI, Normal appearance - ENT Exam ENT Exam: Mucous Membranes Moist - Neck Exam Neck Exam: absent: Tenderness - Respiratory Exam Respiratory Exam: Decreased Breath Sounds, Prolonged Expiratory Phase. absent: Accessory Muscle Use, Respiratory Distress - Cardiovascular Exam Cardiovascular Exam: RRR, +S1, +S2 - GI/Abdominal Exam GI & Abdominal Exam: Soft. absent: Tenderness - Rectal Exam Rectal Exam: Deferred - Extremities Exam Extremities Exam: absent: Calf Tenderness, Pedal Edema - Back Exam Back Exam: absent: CVA tenderness (L), CVA tenderness (R) - Neurological Exam Neurological Exam: Alert, Awake, CN II-XII Intact, Oriented x3 - Psychiatric Exam Psychiatric exam: Normal Affect - Skin Skin Exam: absent: Rash Assessment and Plan (1) COPD exacerbation Status: Acute (2) CHF (congestive heart failure) Status: Acute (3) Hypertension Status: Acute (4) Respiratory failure Status: Acute (5) Unstable angina Status: Acute (6) Obesity Status: Acute - Assessment and Plan (Free Text) Assessment: RESP STATUS IMPROVING, CONT NEB BD., STEROID TAPER., MONITOR O2 SAT. PULM TOILET. CXR REVIEWED. ECHO PENDING., INCREASE OOB., DISCUSSED WITH STAFF AT LENGTH.
--- NOTE | 2018-02-13 12:27 | CARD ---
APPROVED REPORT Date of service: 02/11/2018 EKG Measurement Heart [id number] <Conclusion> Sinus rhythm with premature atrial complexes Left ventricular hypertrophy with repolarization abnormality Abnormal ECG
--- NOTE | 2018-02-13 13:03 | CP.PCM.PN ---
Subjective - Date & Time of Evaluation Date of Evaluation: 02/13/18 Time of Evaluation: 13:00 - Subjective Subjective: PGY-[address] Navarrete's service Pt seen and examined at bedside. Nursing reports no acute events overnight. She is found sleeping comfortably in bed. Patient states she is breathing much better than on admission, with improved cough. She denies fever or chills overnight. Objective - Vital Signs/Intake and Output Vital Signs (last 24 hours): Temp Pulse Resp BP Pulse Ox 98.1 F 105 H 20 159/87 H 96 02/13/18 07:00 02/13/18 12:04 02/13/18 07:00 02/13/18 08:38 02/13/18 07:00 Intake and Output: 02/13/18 02/13/18 06:59 18:59 Intake Total 540 Balance 540 - Medications Medications: Current Medications Acetaminophen (Tylenol 325mg Tab) 650 mg PO Q6 PRN PRN Reason: Headache Last Admin: 02/13/18 00:43 Dose: 650 mg Aspirin (Ecotrin) 325 mg PO DAILY [facility] Last Admin: 02/13/18 09:12 Dose: 325 mg Enoxaparin Sodium (Lovenox) 40 mg SC DAILY [facility] Last Admin: 02/13/18 09:12 Dose: 40 mg Hydralazine HCl (Apresoline) 10 mg IVP Q6H PRN PRN Reason: Systolic Blood Pressure Last Admin: 02/13/18 00:17 Dose: 10 mg Insulin Human Regular (Novolin R) 0 unit SC ACHS [facility] PRN Reason: Protocol Last Admin: 02/13/18 08:45 Dose: 2 units Ipratropium [place] (Atrovent) 0.5 mg IH RQ6 [facility] Last Admin: 02/13/18 01:14 Dose: 0.5 mg Losartan Potassium (Cozaar) 50 mg PO DAILY [facility] Last Admin: 02/13/18 09:12 Dose: 50 mg Methylprednisolone (Solu-Medrol) 40 mg IVP Q12H [facility] Last Admin: 02/13/18 09:11 Dose: 40 mg Pantoprazole Sodium (Protonix Inj) 40 mg IVP DAILY [facility] Last Admin: 02/13/18 09:12 Dose: 40 mg Rosuvastatin Calcium (Crestor) 40 mg PO HS [facility] Last Admin: 02/12/18 21:26 Dose: 40 mg Fluticasone/Salmeterol (Advair Diskus 250/50) 1 puff INH RQ12 [facility] Last Admin: 02/12/18 19:09 Dose: 1 puff - Labs Labs: 02/13/18 06:38 02/13/18 06:38 PT 10.6 SECONDS (9.7-12.2) 02/11/18 01:08 INR 1.0 02/11/18 01:08 APTT 38 SECONDS (21-34) H 02/11/18 01:08 - Additional Findings Additional findings: - Constitutional Appears: Non-toxic, No acute distress - Head Exam Head Exam: ATRAUMATIC, NORMAL INSPECTION, NORMOCEPHALIC - Eye Exam Eye Exam: EOMI, Normal appearance Pupil Exam: NORMAL ACCOMODATION - ENT Exam ENT Exam: Mucous Membranes Moist - Neck Exam Neck Exam: Full ROM - Respiratory Exam Respiratory Exam: Decreased Breath Sounds, Wheezes improved, Respiratory Distress. absent: Rales - Cardiovascular Exam Cardiovascular Exam: Tachycardia, +S1, +S2 - GI/Abdominal Exam GI & Abdominal Exam: Soft, Normal Bowel Sounds. absent: Rigid, Tenderness - Rectal Exam Rectal Exam: Deferred - Extremities Exam Extremities Exam: Full ROM, Normal Inspection - Back Exam Back Exam: NORMAL INSPECTION - Neurological Exam Neurological Exam: Alert, Awake, Oriented x3 - Psychiatric Exam Psychiatric exam: Normal Affect, Normal Mood - Skin Skin Exam: Dry, Normal Color, Warm Assessment and Plan - Assessment and Plan (Free Text) Plan: A/P: Patient is a 62 year old female with past medical history of Hypertension, HLD, DM Type 2, Cerebral aneurysm s/p clippings who presented to the ED with chest pain and dyspnea. Chest Pain R/O ACS, USA -Stable, afebrile -Initial troponin negative x 3 -Received ASA 325mg PO x 1 dose in the ED Continue ASA 325mg PO daily STOP Brilinta 90mg PO BID per cardio recommendation Cardiology on consult, Dr. Schwartz help appreciated - Change lisinopril to Cozaar - No documented CAD so stop Brilinta ASCVD risk: 25.1% -Increase statin to high dose Crestor 40mg PO HS Start Cozaar 50mg PO Daily f/u ECHO History of Diabetes Mellitus -HgA1C 6.5, well controlled -High dose ISS, accuchecks ACHS -Will hold Metformin dose at this time -Urine microalbumin, urine creatinine ordered Crestor 40mg PO HS Losartan 50mg PO Daily Resp Failure in setting of USA Hx of obstructive lung disease (asthma, copd) Etiology: COPD exacerbation D-dimer negative CXR (02/11/18): NAD -Atrovent 0.5mg Q6H [facility] x 24 hours -Received Solumedrol 125mg IVP in the ED -Solumedrol tapered to 40mg IV Daily -CPAP PRN -Patient has a history of asthma, uses albuterol inhaler 4x week and 2x a night for shortness of breath -Patient is a former smoker, quit 6 years ago; smoked 1ppd -Wells criteria 1.5 for tachycardia, therefore no need for PE workup at this time, D Dimer on admission was negative Pulmonology consulted, help appreciated - continue taper of IV steroid Leukocytosis Etiology: Patient on solumedrol Afebrile Monitor Hypertension -S/P Labetolol 10mg IVP during [employer] -Hydralazine 10mg Q6H IVP prn SBP > 160 -Discontinued Lisinopril 5mg PO daily per Cardio reccs -Start Cozaar 50mg PO DAily History of Hyperlipidemia -Lipid panel T chol 284, LDL 204, HDL 57, TG 137 -Increased Crestor to 40mg PO HS (ASCVD risk: 25.1%) Hypokalemia Resolved GI/DVT ppx: Protonix 40mg IVP daily Lovenox 40mg SC daily [facility] Physical therapy evaluation: ATILIO Plan discussed with Dr Ricardo Hand PGY2
--- NOTE | 2018-02-13 20:44 | CP.PCM.PN ---
Subjective - Date & Time of Evaluation Date of Evaluation: 02/13/18 Time of Evaluation: 12:30 - Subjective Subjective: clinically same Objective - Vital Signs/Intake and Output Vital Signs (last 24 hours): Temp Pulse Resp BP Pulse Ox 98.2 F 112 H 20 151/80 H 98 02/13/18 15:00 02/13/18 19:58 02/13/18 15:00 02/13/18 15:00 02/13/18 15:00 - Medications Medications: Current Medications Acetaminophen (Tylenol 325mg Tab) 650 mg PO Q6 PRN PRN Reason: Headache Last Admin: 02/13/18 00:43 Dose: 650 mg Aspirin (Ecotrin) 325 mg PO DAILY [facility] Last Admin: 02/13/18 09:12 Dose: 325 mg Enoxaparin Sodium (Lovenox) 40 mg SC DAILY [facility] Last Admin: 02/13/18 09:12 Dose: 40 mg Insulin Human Regular (Novolin R) 0 unit SC ACHS [facility] PRN Reason: Protocol Last Admin: 02/13/18 18:42 Dose: 4 units Ipratropium [place] (Atrovent) 0.5 mg IH RQ6 [facility] Last Admin: 02/13/18 19:38 Dose: 0.5 mg Losartan Potassium (Cozaar) 50 mg PO BID [facility] Last Admin: 02/13/18 18:41 Dose: 50 mg Methylprednisolone (Solu-Medrol) 40 mg IVP DAILY [facility] Pantoprazole Sodium (Protonix Inj) 40 mg IVP DAILY [facility] Last Admin: 02/13/18 09:12 Dose: 40 mg Rosuvastatin Calcium (Crestor) 40 mg PO HS [facility] Last Admin: 02/12/18 21:26 Dose: 40 mg Fluticasone/Salmeterol (Advair Diskus 250/50) 1 puff INH RQ12 [facility] Last Admin: 02/13/18 19:39 Dose: 1 puff - Labs Labs: 02/13/18 06:38 02/13/18 06:38 PT 10.6 SECONDS (9.7-12.2) 02/11/18 01:08 INR 1.0 02/11/18 01:08 APTT 38 SECONDS (21-34) H 02/11/18 01:08
[2018-02-14] MEDS: Ipratropium 0.02% Inhal Soln (0.5 mg/2.5 ml) UD IH SCH ×3 (01:12→13:28)
[2018-02-14 06:21] LABS: BASO % 0.1 % (0.0-2.0); EOS % 0.3 % (0.0-4.0); HEMOGLOBIN 12.4 g/dL (11.0-16.0); LYMPH # 2.1 K/uL (1.0-4.3); LYMPH % 20.7 % (20.0-40.0); MEAN CELL VOLUME 78.8 fL (81.0-99.0); MEAN CORPUSCULAR HEMOGLOBIN 25.6 pg (27.0-31.0); MEAN CORPUSCULAR HGB CONC 32.5 g/dL (33.0-37.0); MEAN PLATELET VOLUME 8.2 fL (7.2-11.7); MONO # 0.8 K/uL (0.0-0.8); MONO % 8.2 % (0.0-10.0); NEUT # 7.1 K/uL (1.8-7.0); NEUT % 70.7 % (50.0-75.0); NRBC % 0.1 % (0.0-2.0); RBC 4.83 Mil/uL (3.80-5.20); RED CELL DISTRIBUTION WIDTH 14.9 % (11.5-14.5)
[2018-02-14 06:49] LABS: ALB/GLOB RATIO 1.4 (1.0-2.1); ALBUMIN 3.6 g/dL (3.5-5.0); ALT/SGPT 21 U/L (9-52); AST/SGOT 18 U/L (14-36); BLOOD UREA NITROGEN 19 mg/dL (7-17); CALCIUM 8.3 mg/dl (8.6-10.4); GFR AFRICAN-AMERICAN > 60; GFR NON-AFRICAN AMERICAN > 60
[2018-02-14] MEDS: Fluticasone-Salmeterol 250-50mcg Diskus INH SCH (07:15)
[2018-02-14] MEDS: (Novolin R) Insulin Human Regular 100 units/ml vial SC SCH ×2 (07:26→11:58)
[2018-02-14 07:48] VITALS: BP 161/76; RESP 20; TEMP 97.3; O2SAT 95
[2018-02-14 09:02] VITALS: PULSE 90
[2018-02-14] MEDS: Aspirin 325 mg EC Tablets PO SCH (09:19)
[2018-02-14] MEDS: Enoxaparin 40 mg Syringe SC SCH (09:20)
[2018-02-14] MEDS ORDERED: MethylPREDNISolone 40 mg Vial IVP SCH (10:00)
--- NOTE | 2018-02-14 14:14 | CP.PCM.PN ---
Subjective - Date & Time of Evaluation Date of Evaluation: 02/14/18 Time of Evaluation: 14:00 - Subjective Subjective: [employer]CE[employer] NOTES Patient seen today, sob improved, denies any headache, palpitations dizziness , fever, chills seen by Dr. Daily , cleared fro discharge home today and f/u with Dr. Sarah office on Friday seen by Dr. Johnson today, cleared fro discharge home today and f/u with Dr. Ricardo stanton office on Friday Discharge plan discussed with patient who understands and agrees with plan RX given Objective - Vital Signs/Intake and Output Vital Signs (last 24 hours): Temp Pulse Resp BP Pulse Ox 97.3 F L 90 20 161/76 H 95 02/14/18 07:35 02/14/18 07:35 02/14/18 07:35 02/14/18 07:35 02/14/18 07:35 Intake and Output: 02/14/18 02/14/18 06:59 18:59 Intake Total 240 Balance 240 - Medications Medications: Current Medications Acetaminophen (Tylenol 325mg Tab) 650 mg PO Q6 PRN PRN Reason: Headache Last Admin: 02/13/18 00:43 Dose: 650 mg Aspirin (Ecotrin) 325 mg PO DAILY [facility] Last Admin: 02/14/18 09:19 Dose: 325 mg Enoxaparin Sodium (Lovenox) 40 mg SC DAILY [facility] Last Admin: 02/14/18 09:20 Dose: 40 mg Insulin Human Regular (Novolin R) 0 unit SC ACHS [facility] PRN Reason: Protocol Last Admin: 02/14/18 11:58 Dose: 2 units Ipratropium [place] (Atrovent) 0.5 mg IH RQ6 [facility] Last Admin: 02/14/18 13:28 Dose: 0.5 mg Losartan Potassium (Cozaar) 50 mg PO BID [facility] Last Admin: 02/14/18 09:19 Dose: 50 mg Methylprednisolone (Solu-Medrol) 40 mg IVP DAILY [facility] Last Admin: 02/14/18 09:19 Dose: 40 mg Pantoprazole Sodium (Protonix Inj) 40 mg IVP DAILY [facility] Last Admin: 02/14/18 09:20 Dose: 40 mg Rosuvastatin Calcium (Crestor) 40 mg PO HS [facility] Last Admin: 02/13/18 22:32 Dose: 40 mg Fluticasone/Salmeterol (Advair Diskus 250/50) 1 puff INH RQ12 [facility] Last Admin: 02/14/18 07:15 Dose: 1 puff - Labs Labs: 02/14/18 06:14 02/14/18 06:14 PT 10.6 SECONDS (9.7-12.2) 02/11/18 01:08 INR 1.0 02/11/18 01:08 APTT 38 SECONDS (21-34) H 02/11/18 01:08
--- NOTE | 2018-02-14 15:02 | CP.PCM.PN ---
Subjective - Date & Time of Evaluation Date of Evaluation: 02/14/18 Time of Evaluation: 11:00 - Subjective Subjective: clinically same Objective - Vital Signs/Intake and Output Vital Signs (last 24 hours): Temp Pulse Resp BP Pulse Ox 97.3 F L 90 20 161/76 H 95 02/14/18 07:35 02/14/18 07:35 02/14/18 07:35 02/14/18 07:35 02/14/18 07:35 Intake and Output: 02/14/18 02/14/18 06:59 18:59 Intake Total 240 500 Balance 240 500 - Labs Labs: 02/14/18 06:14 02/14/18 06:14 PT 10.6 SECONDS (9.7-12.2) 02/11/18 01:08 INR 1.0 02/11/18 01:08 APTT 38 SECONDS (21-34) H 02/11/18 01:08 - Constitutional Appears: Well - Head Exam Head Exam: ATRAUMATIC, NORMAL INSPECTION, NORMOCEPHALIC - Eye Exam Eye Exam: EOMI, Normal appearance, PERRL Pupil Exam: NORMAL ACCOMODATION, PERRL - ENT Exam ENT Exam: Mucous Membranes Moist, Normal Exam - Neck Exam Neck Exam: Full ROM, Normal Inspection. absent: Lymphadenopathy - Respiratory Exam Respiratory Exam: Decreased Breath Sounds - Cardiovascular Exam Cardiovascular Exam: REGULAR RHYTHM, +S1, +S2 - GI/Abdominal Exam GI & Abdominal Exam: Soft, Diminished Bowel Sounds - Rectal Exam Rectal Exam: Deferred
--- NOTE | 2018-02-15 15:13 | CARD ---
APPROVED REPORT Date of service: 02/12/2018 EXAM: Two-dimensional and M-mode echocardiogram with Doppler and color Doppler. INDICATION Dyspnea Chest Pain COPD asthma RISK FACTORS Hypertension Hyperlipidemia Diabetes 2D DIMENSIONS IVSd1.7 (0.7-1.1cm)LVDd4.3 (3.9-5.9cm) PWd1.4 (0.7-1.1cm)LVDs2.2 (2.5-4.0cm) FS (%) 48.8 %LVEF (%)80.5 (>50%) M-Mode DIMENSIONS Left Atrium (MM)4.43 (2.5-4.0cm)IVSd2.10 (0.7-1.1cm) Aortic Root3.22 (2.2-3.7cm)LVDd4.77 (4.0-5.6cm) Aortic Cusp Exc.2.15 (1.5-2.0cm)PWd1.31 (0.7-1.1cm) FS (%) 45 %LVDs2.61 (2.0-3.8cm) LVEF (%)76 (>50%) Aortic Valve AoV Peak Yaskflry307.0cm/Patricia Peak GR.21mmHgLVOT Peak Rfnvajyq060.4cm/s Mitral Valve MV E Xgkbcpzp99.7cm/sMV A Jlnmnhzt80.5cm/sE/A ratio0.9 TDI E/Lateral E'0.0E/Medial E'0.0 Tricuspid Valve TR Peak Zqcsvgal632ru/sTR Peak Gr.29pyOaDFPO61noBr LEFT VENTRICLE The left ventricle is normal size. There is severe concentric left ventricular hypertrophy. The Ejection Fraction is >70%. Transmitral Doppler flow pattern is Grade II-pseudonormal filling dynamics. The left atrial pressure is mildly elevated. moderately increased la volme index. RIGHT VENTRICLE The right ventricle is normal size. The right ventricular systolic function is normal. ATRIA The left atrium is moderately dilated. The right atrium size is normal. The interatrial septum is intact with no evidence for an atrial septal defect. AORTIC VALVE The aortic valve is mildly calcified. The aortic valve is trileaflet. There is trace to mild aortic regurgitation. max lv mid cavitory gradient of 124 mm of hg noted.barbara appears normal. MITRAL VALVE Mitral annular calcification is mild. Mitral regurgitation is mild. TRICUSPID VALVE The tricuspid valve is normal in structure. There is mild tricuspid regurgitation. Right ventricular systolic pressure is estimated at 34 mmHg. There is mild pulmonary hypertension. PULMONIC VALVE The pulmonary valve is normal in structure. GREAT VESSELS The aortic root is normal size. The aortic root displays mild sclerocalcific changes of the aortic root. The IVC is normal in size and collapses >50% with inspiration. PERICARDIAL EFFUSION There is no pericardial effusion. <Conclusion> The left ventricle is normal size. There is severe concentric left ventricular hypertrophy. The Ejection Fraction is >70%. Transmitral Doppler flow pattern is Grade II-pseudonormal filling dynamics. The left atrial pressure is mildly elevated. moderately increased la volme index. The left atrium is moderately dilated. The aortic valve is mildly calcified. The aortic valve is trileaflet. There is trace to mild aortic regurgitation. max lv mid cavitory gradient of 124 mm of hg noted.barbara appears normal. Mitral regurgitation is mild. There is mild tricuspid regurgitation. Right ventricular systolic pressure is estimated at 34 mmHg. There is mild pulmonary hypertension. The aortic root is normal size. The aortic root displays mild sclerocalcific changes of the aortic root.
== END 2018-02-14 14:54 | disposition home or self-care (01) | DRG 291 ==
LOC: C.ER 00:29 → SUPCPDRO 00:29 → C.9E 03:25 → C.6T 06:16
PROVIDERS: ADMIT Internal Medicine Nephrology; ATTEND Internal Medicine Nephrology
DX: I11.0 Hypertensive heart disease with heart failure (principal); J96.90 Respiratory failure, unspecified, unspecified whether with hypoxia or hypercapnia; I47.1 Supraventricular tachycardia; J44.1 Chronic obstructive pulmonary disease with (acute) exacerbation; J45.901 Unspecified asthma with (acute) exacerbation; G47.33 Obstructive sleep apnea (adult) (pediatric); I25.110 Atherosclerotic heart disease of native coronary artery with unstable angina pectoris; E78.5 Hyperlipidemia, unspecified; E87.6 Hypokalemia; I50.9 Heart failure, unspecified; Z79.4 Long term (current) use of insulin; D72.829 Elevated white blood cell count, unspecified; Z87.891 Personal history of nicotine dependence; E11.9 Type 2 diabetes mellitus without complications; E66.9 Obesity, unspecified

== ENCOUNTER 2018-03-17 14:57 | Emergency (ER) | payer BC ==
[2018-03-17 15:01] VITALS: BP 136/84; PULSE 83; RESP 16; TEMP 98.1; O2SAT 98
[2018-03-17 15:30] LABS: SQUAMOUS EPITHIAL 5 /hpf (0-5); URINE BACTERIA RARE (<OCC); URINE BILIRUBIN NEGATIVE (NEGATIVE); URINE BLOOD NEGATIVE (NEGATIVE); URINE CLARITY Hazy (Clear); URINE COLOR Yellow (YELLOW); URINE GLUCOSE (UA) NORMAL (Normal); URINE LEUKOCYTE ESTERASE NEG Leu/uL (Negative); URINE PROTEIN NEGATIVE (NEGATIVE); URINE UROBILINOGEN NORMAL mg/dL (0.2-1.0)
[2018-03-17] MEDS ORDERED: Lidocaine 5% Patch TD STA (15:33)
[2018-03-17] MEDS ORDERED: Lidocaine 5% Patch TD ONE (15:41)
--- NOTE | 2018-03-17 16:08 | C.PDOC ---
History Of Present Illness 63 y/o female presents to the ED complaining of left lower back pain radiating down her buttock into the left leg. Patient reports the buttock also feels numb at times. She admits to having similar episodes in the past and was diagnosed with sciatica, but could not reach her PMD today so she came here for treatment. Patient notes the pain worsened over night, and she had difficulty sleeping. Otherwise patient denies any dysuria, frequency, incontinence of stool or urine, fever, lower extremity weakness or focal deficits. Time Seen by Provider: 03/17/18 15:22 Chief Complaint (Nursing): Back Pain History Per: Patient History/Exam Limitations: no limitations Onset/Duration Of Symptoms: Days Current Symptoms Are (Timing): Still Present Previous Symptoms: Back Pain Past Medical History Reviewed: Historical Data, Nursing Documentation, Vital Signs Vital Signs: Last Vital Signs Temp 98.1 F 03/17/18 14:58 Pulse 83 03/17/18 14:58 Resp 16 03/17/18 14:58 BP 136/84 03/17/18 14:58 Pulse Ox 98 03/17/18 16:12 - Medical History PMH: Anxiety, Asthma, COPD, Diverticulitis, HTN Denies: Chronic Kidney Disease Surgical History: Cholecystectomy Family History: States: No Known Family Hx - Social History Hx Alcohol Use: No Hx Substance Use: No - Immunization History Hx Tetanus Toxoid Vaccination: No Hx Influenza Vaccination: Yes Hx Pneumococcal Vaccination: Yes Review Of Systems Except As Marked, All Systems Reviewed And Found Negative. Constitutional: Negative for: Fever, Chills Gastrointestinal: Negative for: Abdominal Pain Genitourinary: Negative for: Dysuria, Frequency, Incontinence, Hematuria Musculoskeletal: Positive for: Back Pain Neurological: Positive for: Numbness (occasionally down the left buttocks/leg). Negative for: Weakness, Incoordination Physical Exam - Physical Exam Appears: Non-toxic, No Acute Distress Skin: Normal Color, Warm, Dry Head: Atraumatic, Normacephalic Eye(s): bilateral: Normal Inspection Oral Mucosa: Moist Neck: Normal ROM, Supple Chest: Symmetrical Back: Normal Inspection, No Vertebral Tenderness, No Straight Leg Raising Extremity: Bilateral: Atraumatic, Normal Color And Temperature, Normal ROM Pulses: Left Dorsalis Pedis: Normal, Right Dorsalis Pedis: Normal Neurological/Psych: Oriented x3, Normal Speech, Normal Motor, Normal Sensation Gait: Steady ED Course And Treatment O2 Sat by Pulse Oximetry: 98 (RA) Pulse Ox Interpretation: Normal Medical Decision Making Medical Decision Making: Impression: Back pain, consistent w/ sciatica Initial Plan: --Motrin 600 mg PO --Tylenol 975 mg PO --Lidoderm patch x1 --Urinalysis --Urine culture Disposition Counseled Patient/Family Regarding: Diagnosis, Need For Followup, Rx Given - Disposition Disposition: HOME/ ROUTINE Disposition Time: 16:32 Condition: STABLE Prescriptions: Ibuprofen [Motrin] 600 mg PO TID #15 tab Lidocaine 5% [Lidoderm] 1 ea TD DAILY #2 patch Instructions: Sciatica Forms: Gen Discharge Inst [place], [facility] ([place]) - Clinical Impression Clinical Impression: Sciatica - Scribe Statement The provider has reviewed the documentation as recorded by the Loc Goodson Provider Attestation: All medical record entries made by the Avtaribchristiano were at my direction and personally dictated by me. I have reviewed the chart and agree that the record accurately reflects my personal performance of the history, physical exam, medical decision making, and the department course for this patient. I have also personally directed, reviewed, and agree with the discharge instructions and disposition.
== END 2018-03-17 16:47 | disposition home or self-care (01) ==
LOC: C.ER 14:57
DX: M54.30 Sciatica, unspecified side (principal)

== ENCOUNTER 2018-07-01 09:34 | Emergency (ER) | payer BC ==
[2018-07-01 09:39] VITALS: TEMP 98.1
[2018-07-01] MEDS ORDERED: Albuterol-Ipratrop 3 mg / 0.5 (3 ml) UD ONE (10:57)
[2018-07-01] MEDS ORDERED: Albuterol-Ipratrop 3 mg / 0.5 (3 ml) UD INH STA (11:06)
[2018-07-01] MEDS ORDERED: Albuterol 0.083% Inhal Sol (2.5 mg/3 mL) UD ONE (11:50)
[2018-07-01 12:16] VITALS: BP 161/95; PULSE 64; RESP 16; O2SAT 94
--- NOTE | 2018-07-01 13:25 | C.PDOC ---
History Of Present Illness 63 y/o female,w/PMhx of asthma, presents to the ER complaining of shortness of breath and wheezing which has been present for the past 2 days. Patient states that she ran out of her nebulizers and medications. Denies having CP, cough, fever, and chills. Of note, patient was treated with Duoneb while she was waiting to be evaluated in the ER. Afterwards, she notes that her symptoms improved. Time Seen by Provider: 07/01/18 10:50 Chief Complaint (Nursing): Shortness Of Breath History Per: Patient History/Exam Limitations: no limitations Onset/Duration Of Symptoms: Days Current Symptoms Are (Timing): Still Present Severity: Moderate Past Medical History Reviewed: Historical Data, Nursing Documentation, Vital Signs Vital Signs: Last Vital Signs Temp 98.1 F 07/01/18 09:37 Pulse 64 07/01/18 12:16 Resp 16 07/01/18 12:16 BP 161/95 H 07/01/18 12:16 Pulse Ox 94 L 07/01/18 12:16 - Medical History PMH: Anxiety, Asthma, COPD, Diverticulitis, HTN Denies: Chronic Kidney Disease Surgical History: Cholecystectomy Family History: States: No Known Family Hx - Social History Hx Alcohol Use: No Hx Substance Use: No - Immunization History Hx Tetanus Toxoid Vaccination: No Hx Influenza Vaccination: Yes Hx Pneumococcal Vaccination: Yes Review Of Systems Except As Marked, All Systems Reviewed And Found Negative. Constitutional: Negative for: Fever, Chills Cardiovascular: Negative for: Chest Pain Respiratory: Positive for: Shortness of Breath, Wheezing. Negative for: Cough Gastrointestinal: Negative for: Nausea, Vomiting Physical Exam - Physical Exam Appears: Non-toxic, No Acute Distress, Other (speaking in full sentences) Skin: Normal Color, Warm, Dry Head: Atraumatic, Normacephalic Eye(s): bilateral: Normal Inspection Neck: Supple Chest: Symmetrical Cardiovascular: Rhythm Regular Respiratory: No Rales, No Rhonchi, No Wheezing Neurological/Psych: Oriented x3, Normal Speech ED Course And Treatment O2 Sat by Pulse Oximetry: 94 (RA) Pulse Ox Interpretation: Normal Medical Decision Making Medical Decision Making: Plan: --Albuterol --Prednisone Updates: On re-evaluation, patient states that she is feeling much better. Denies any wheezing, sob or any other complaints at this time. Lungs re-examined: CTA B/L no wheezes, rhonchi or rales. Very good air movement. Understands and agrees to immediately return to the ER if trouble breathing, chest pain or any other concerning, worsening, new or continued symptoms. Otherwise, agrees to follow up with primary doctor in 1-2 days. States will call [facility] for appointment. Patient states feeling better and would like to go home. Patient is very well appearing and non-toxic. Vital signs are stable. I discussed the results of the work-up, diagnosis and treatment. Written discharge instructions were provided to patient. Additional verbal instructions were given and discussed with patient. We discussed the importance of follow up with PCP/consultants. I also reiterated reasons to immediately return to the ER including: worsening in current symptoms and/or new, continued, or concerning symptoms. Pt understood and agreed. Disposition Counseled Patient/Family Regarding: Diagnosis, Need For Followup - Disposition Referrals: Mary Navarrete MD [Staff Provider] - Disposition: HOME/ ROUTINE Disposition Time: 13:21 Condition: IMPROVED Prescriptions: Albuterol 0.083% [Albuterol 0.083% Inhal Chantale (2.5 mg/3 ml) UD] 2.5 mg IH Q6 PRN #1 PRN Reason: Shortness Of Breath predniSONE [Prednisone] 40 mg PO DAILY #10 tab Instructions: Asthma, Adult (DC) Forms: General Discharge Instructions, [facility] ([place]), Work Excuse - POA Present On Arrival: None - Clinical Impression Clinical Impression: Asthma exacerbation - Scribe Statement The provider has reviewed the documentation as recorded by the [facility] [place] Provider Attestation: All medical record entries made by the [facility] were at my direction and personally dictated by me. I have reviewed the chart and agree that the record accurately reflects my personal performance of the history, physical exam, medical decision making, and the department course for this patient. I have also personally directed, reviewed, and agree with the discharge instructions and disposition.
== END 2018-07-01 15:02 | disposition home or self-care (01) ==
LOC: C.ER 09:34
DX: J45.901 Unspecified asthma with (acute) exacerbation (principal); Z87.891 Personal history of nicotine dependence